=== PATIENT | male | born 1950 | race Caucasian/White ===

== ENCOUNTER 2022-12-21 12:20 | Outpatient (CLI) | payer MEDICARE, SELFPAY ==
--- NOTE | ~2022-12-21 | XR_ITS ---
XR abdomen/kub 1V 12/21/2022 12:43 Indication: Right kidney stone Procedure: KUB Comparison: No prior studies for comparison. Findings: There is a curvilinear calcification overlying the expected location the right renal hilum which may represent a renal stone or vascular calcification. There are pelvic phleboliths on the righ t. There is moderate osteoarthritis of the hips. Impression: 1: Curvilinear calcification overlying the right renal pelvis which may represent a renal stone or va scular calcification. Reviewed, dictated and finalized at location A. Impression: 1: Curvilinear calcification overlying the right renal pelvis which may represe nt a renal stone or vascular calcification.
== END 2022-12-21 12:21 | disposition home or self-care (01) ==
PROVIDERS: PCP Family Medicine; Visit Provider Urology
DX: N20.0 Calculus of kidney (principal)
CPT/HCPCS: 74018

== ENCOUNTER 2023-02-26 09:19 | Outpatient (CLI) | payer MEDICARE, SELFPAY ==
--- NOTE | 2023-02-26 09:46 | ECG_ITS ---
Measurements Intervals [place] Rate: 51 P: 43 MA: 230 QRS: -17 QRSD: 100 T: -3 QT: 426 QTc: 396 Interpretive Statements SINUS BRADYCARDIA WITH FIRST DEGREE AV BLOCK WITH OCCASIONAL VENTRICULAR PREMATURE COMPLEXES MODERATE VOLTAGE CRITERIA FOR LVH, CONSIDER NORMAL VARIANT [MEETS CRITERIA IN ONE OF: R(aVL), S(V1), R(V5), R(V5/V6)+S(V1)] POOR R-WAVE PROGRESSION ABNORMAL ECG NO PREVIOUS ECG AVAILABLE FOR COMPARISON Electronically Signed On 02-26-2023 13:37:46 CDT by Parker Montenegro M.D.
[2023-02-26 10:34] LABS: INR 0.8; Prothrombin Time 11.7 Seconds (11.1-14.7)
== END 2023-02-26 09:20 | disposition home or self-care (01) ==
LOC: ANHSURGERY 09:24
PROVIDERS: PCP Family Medicine; Visit Provider Urology
DX: Z01.818 Encounter for other preprocedural examination (principal); R94.31 Abnormal electrocardiogram [ECG] [EKG]; I44.0 Atrioventricular block, first degree; R00.1 Bradycardia, unspecified; R93.1 Abnormal findings on diagnostic imaging of heart and coronary circulation; N20.0 Calculus of kidney; I10 Essential (primary) hypertension
CPT/HCPCS: 36415; 85610; 85730; 87086; 93005

== ENCOUNTER 2023-03-02 00:24 | Day surgery (SDC) | payer MEDICARE, SELFPAY ==
[2023-02-16 11:53] VITALS: BMI 30.6
--- NOTE | 2023-02-16 12:04 | PC.NURSE ---
PRE-OP INSTRUCTIONS, PLEASE READ CAREFULLY Report to the Outpatient Waiting Room, entrance under the green pavilion located off [facility], at time _0600_ on date _03/02/23_. Planned Procedure Time: _0730_. Time changes happen often and if your time is changed the preop area will call you the afternoon before. - You and your visitor will be asked to self-screen and do not enter if you have any COVID symptoms. - A mask is optional within the hospital at this time. Patients may have clear liquids (water, carbonated beverages, clear teas, apple juice) until 3 hours prior to surgery (0430 AM) with a maximum of 20 ounces. - No food from midnight until time of surgery Take the following medications with a SIP of water the morning of surgery: _AMLODIPINE, NEBIVOLOL_ DO NOT STOP ANY OF YOUR OTHER PRESCRIPTION MEDICATIONS PRIOR TO SURGERY ?EXCEPT THE FOLLOWING Medications to discontinue - _IBUPROFEN & MULTIVITAMIN PER DR. AVELAR'S INSTRUCTIONS_ Please no make-up, nail bengali, hairspray, perfume, deodorant, or body powder the day of surgery. No jewelry (including any body piercings) or valuables the day of surgery, leave them at home. Please take a shower or bath the night before, or the morning of, surgery with an antibacterial soap. Wear comfortable, loose fitting clothing. - Jewelry must be removed prior to entering the operating room. Rings and piercings that are not removed may be cut off. - The hospital will not accept responsibility for valuables. - Please leave all valuables, including medications, at home the day of surgery. If you are going home after surgery, a licensed driver starting gate must drive you home. - NO public transportation without another adult if you receive anesthesia. - We recommend that an adult stay with you for 24 hours following discharge. - We also recommend that you do not drive, make important decision, drink alcoholic beverages, or take any drugs that were not prescribed by your health care provider for at least 24 hours after your discharge time. Follow any additional instructions given to you from your surgeon. If you or anyone in your household have experienced Covid symptoms in the past week, please notify your surgeon or the nurse liaison at the phone number below for possible testing. Telephone instructions given to _PATIENT_and asked if any additional questions and then verbalized understanding. Patient advised to call surgeon office or pre surgery nurse liaison [phone] if any additional questions.
--- NOTE | 2023-02-20 09:20 | P.HP_ITS ---
History of Present Illness History of Present Illness Consent: Risks, benefits, and alternatives have been discussed and questions answered. Patient agrees to proceed with procedure. Chief complaint: right renal stone, hematuria Narrative: Kendrick Hernandez Sr. is a 72 year old male Without prior known history of urolithiasis who recently underwent evaluation for hematuria. CT scan the abdomen and pelvis with contrast revealed a 5 mm right renal pelvic calculus w ithout other upper tract pathology. After discussion of options he has elected for a right ESWL. He is aware the risk including, but not limited to, adverse cardiopulmonary events, perinephric hematoma hematuria and need for additional procedures. We will also do cystoscopy at the time to complete evaluation for hematuria Review of Systems Cardiovascular: Cardiovascular: Denies chest pain, Denies lightheadedness, Denies palpitations and Denies dyspnea Respiratory: Respiratory: Denies dyspnea Gastrointestinal: Gastrointestinal: Denies diarrhea, Denies nausea and Denies vomiting Genitourinary: Genitourinary: Denies hematuria and Denies dysuria Endocrine: Endocrine: Denies palpitations PMFSH Social History Social History Smoking status: Never smoker Second hand tobacco smoke exposure: No Alcohol intake: never Substance use: never Living arrangements: with family Spiritual care concerns: No Meds Home Medications and Allergies Home Medications Medication Instructions Recorded Confirmed Type amlodipine 10 mg tablet 10 mg QAM 02/16/23 02/16/23 History cetirizine 10 mg tablet (Zyrtec) 10 mg PO HS 02/16/23 02/16/23 History ibuprofen 200 mg tablet 400 mg PO BID PRN Pain 02/16/23 02/16/23 History multivitamin 1 tablet PO DAILY 02/16/23 02/16/23 History nebivolol 5 mg tablet 5 mg QAM 02/16/23 02/16/23 History simvastatin 20 mg tablet 10 mg HS 02/16/23 02/16/23 History Allergies Allergy/AdvReac Type Severity Reaction Status Date / Time No Known Allergies Allergy Verified 02/16/23 11:48 Exam Const: General: no acute distress Resp: Effort & Inspection: normal respiratory effort GI: Inspection: non-distended GI Palp: No abdominal tenderness and No Guarding due to palpation present (GI) Auscultation: normal bowel sounds Assessment and Plan Assessment and plan (1) Right renal stone: Code(s): N20.0 - Calculus of kidney Status: Acute (2) Hematuria: Code(s): R31.9 - Hematuria, unspecified Status: Acute Assessment and Plan: * Right ESWL and flexible cystoscopy
[2023-03-02] VITALS (7 sets, daily range): BP systolic 133–180; BP diastolic 59–102; PULSE 47–70; RESP 12–19; TEMP 36.4–36.6; O2SAT 96–99
--- NOTE | ~2023-03-02 | XR_ITS ---
Supine and upright views of the abdomen Clinical history: Lithotripsy COMPARISON: 12/21/2022 Findings: Bowel gas pattern is nonspecific. No evidence for obstruction or free air. Stable small cur vilinear calcification overlying the region of the right renal pelvis. Stable calcified pelvic phlebo liths. Degenerative change of both hip joints noted. Impression: Stable small curvilinear calcification at the region of the right renal pelvis. Reviewed, dictated and finalized at location M. Impression: Stable small curvilinear calcification at the region of the right renal pelvis.
[2023-03-02] MEDS: LACTATED RINGERS 1,000 ML 30 ML IV CONT (06:30)
--- NOTE | 2023-03-02 06:34 | P.PNAN_ITS ---
Anes - Initial Pre Proc Eval Procedure: Operation Date: 03/02/23 07:30 Proposed Procedures p Right Extracorporeal Shock Wave Lithotripsy, - Davion Vallejo MD s Flexible Cystoscopy - Davion Vallejo MD Date/Time: 03/02/23 06:34 Surgeon: Davion Vallejo MD Pre Op Diagnosis: right renal stone, hematuria Patient Data Age: 72 Gender: M Height: 1.75 m Weight: 94.09 kg Allergies Allergy/AdvReac Type Severity Reaction Status Date / Time No Known Allergies Allergy Verified 02/16/23 11:48 Home Medications Medication Instructions Recorded Confirmed Type amlodipine 10 mg tablet 10 mg QAM 02/16/23 02/16/23 History cetirizine 10 mg tablet (Zyrtec) 10 mg PO HS 02/16/23 02/16/23 History ibuprofen 200 mg tablet 400 mg PO BID PRN Pain 02/16/23 02/16/23 History multivitamin 1 tablet PO DAILY 02/16/23 02/16/23 History nebivolol 5 mg tablet 5 mg QAM 02/16/23 02/16/23 History simvastatin 20 mg tablet 10 mg HS 02/16/23 02/16/23 History Patient hx anesthesia problems: none Family hx anesthesia problems: none Results Review: All pre-operative results and documents have been reviewed as part of the pre- operative evaluation. [facility] Past Medical History Medical History (Updated 03/02/23 @ 06:35 by Konstantin Yoder MD) HTN (hypertension) Hyperlipidemia Obesity Social History Social History Smoking status: Never smoker Second hand tobacco smoke exposure: No Alcohol intake: never Substance use: never Living arrangements: with family Spiritual care concerns: No Anes - Eval Final PreProcedure Day of Procedure 03/02/23 06:34 Patient weight: obese Heart: regular rate and rhythm Lungs: clear to auscultation Airway: Mallampati scale class II Neurological: alert and oriented Last oral intake: >/= 8 hours ASA classification: III Emergent: no Anesthetic plan: proceed Anesthesia type and monitoring: general LMA and standard monitoring Results Review: All pre-operative results and documents have been reviewed as part of the pre- operative evaluation. Informed Consent: The patient's anesthetic plan and its attendant risks and benefits were discussed with the patient/family/POA. Questions were solicited and answers provided to the satisfaction of the patient/family/POA.
--- NOTE | 2023-03-02 07:18 | WPDHPUPDATE1 ---
History and Physical Update Update Date/Time: 03/02/23 07:18 History and Physical has been reviewed, including an updated exam of the patient. There are NO changes in the patient's condition. Risks, benefits, and alternatives have been discussed and questions answered. Patient agrees to proceed with procedure.
[2023-03-02] MEDS: ceFAZolin 2 GM/D5W 50 ML 2 GM/50 ML BAG IVPB (07:21)
--- NOTE | 2023-03-02 08:09 | W.PM.PROC2 ---
Procedure Note - Detailed Date of Procedure 03/02/23 Pre-op Diagnosis Right renal stone, hematuria Post-op Diagnosis Same Procedure Performed 1. Flexible cystoscopy 2. Right ESWL Surgeon Davion Vallejo MD Anesthesia General Findings 1. Normal cystoscopy 2. 5-6mm right renal calculus Description of Procedure The patient was brought to the operative suite where he was placed in the supine position on the Dornier lithotripter table. Flexible cystoscopy was undertaken with a 16F flexible cystoscopy. There were no urethral strictures. The prostatic urethra estimated length was 1.5cm. There was mild obstruction of the prostatic urethra with no median lobe enlargement. The bladder mucosa was normal and there was a single, orthotopic ureteral orifice bilaterally. The patient was then repositioned in the supine position with the focal point of the lithotriptor on a 5-6mm right renal calculus. A total of 2500 shocks were delivered at a power setting of 4. There appeared to be good fragmentation of the stone. The patient tolerated the procedure well and was taken to the recovery room in good condition. Drains No Packing No Pathology None sent Complications No immediate complications Condition Stable
== END 2023-03-02 09:44 | disposition home or self-care (01) ==
PROVIDERS: PCP Family Medicine; Visit Provider Urology
PROC: (CPT 50590; principal; 2023-03-02 07:30)
PROC: 0TJB8ZZ Inspection of Bladder, Via Natural or Artificial Opening Endoscopic (ICD-10-PCS; CPT 52000; 2023-03-02 07:30)
DX: N20.0 Calculus of kidney (principal); R31.9 Hematuria, unspecified; I10 Essential (primary) hypertension; E78.5 Hyperlipidemia, unspecified; E66.9 Obesity, unspecified; Z68.30 Body mass index [BMI] 30.0-30.9, adult
CPT/HCPCS: 50590; 52000; 36415; 74018; 85610; 85730; 87086; 93005; J0690; J1100; J2405; J2704; J7120

== ENCOUNTER 2023-03-07 09:20 | Outpatient (CLI) | payer MEDICARE, SELFPAY ==
--- NOTE | ~2023-03-07 | XR_ITS ---
XR abdomen/kub 1V 03/07/2023 09:40 INDICATION: Renal stone TECHNIQUE: KUB COMPARISON: 03/02/2023 12/21/2022 FINDINGS: Bowel gas pattern is normal. Stable curvilinear calcification overlying the expected locati on of the renal pelvis, suspicious for vascular calcification There is no evidence of free air, mass, organomegaly, ascites or obstruction. No abnormal calculi are seen. The bones appear intact. IMPRESSION: 1: Stable curvilinear calcification at the right renal pelvis, possibly vascular. Consider correlatio n with CT to exclude renal artery aneurysm versus renal stone. Reviewed, dictated and finalized at location B. IMPRESSION: 1: Stable curvilinear calcification at the right renal pelvis, possibly vascula r. Consider correlation with CT to exclude renal artery aneurysm versus renal s tone.
== END 2023-03-07 09:21 | disposition home or self-care (01) ==
PROVIDERS: PCP Family Medicine; Visit Provider Urology
DX: N20.0 Calculus of kidney (principal)
CPT/HCPCS: 74018

== ENCOUNTER 2025-01-19 09:58 | Outpatient (CLI) | payer MEDICARE, SELFPAY ==
--- OUTSIDE RECORDS SUMMARY | 2018-02-28 04:50 | XMS_ITS | Continuity of Care Document ---
Author Organization [facility] Address [address] [place] [address] Phone Care Team Providers Care Process Cheese Cooker Name Role Phone Manny Rojas MD Unavailable Unavailable Allergies, Adverse Reactions, Alerts Substance Reaction Status Criticality No Known Allergies Active No Inform ation Medications Medication Instructions Dosage Effective Dates (start - stop) Status Comments Bystolic 5 mg tablet take 1 tablet by or al route every day 5 MG - Active amlodipine 5 mg tablet take 2 tablet by oral route every day 10 MG - Active simvastatin 10 mg tablet take 1 tablet by oral route every day in the evening 10 MG - Active Wal-Mucil Fiber 0.52 gram capsule - Active Oxford 3-6-9 Complex 400 mg-400 mg-400 mg capsule - Active Advance Directives Directive Yes / No Effective Date File Name No Information Encounters Encounter Description Practice Location Reason(s) For Visit Diagnoses Date Provider Providers [facility], [address], [place], [place], [id number], tel:[phone] [place] [facility] Non-allergi c rhinitis Bob Bryant. [address], [id number], [place]. tel:[phone] Referring Provider: Konstantin Ferro, [address] [place], [address]. tel:[phone] Family History Family Member Type Diagnosis Age At Onset Son Problem (finding) Allergies Payers Payer name Insurance type Covered libertarian ID Authoriza tion(s) [facility] [facility] 16 [id number] Social History Type Description Quantity Date Captured Comments Alcohol Use Details Unknown Caffeine Use Details Unknown Tobacco Use Status No Information Smoking Status Never smoker Sex Male Vital Signs Date / Time: Height Weight BMI Pulse Rate Blood Pressure Temperature Respiratory Rate Body Surface Area Head Circumference Head Circ. Percentile Wt./Brandon. Percentile BMI percentile Pulse Ox Inhaled Ox 9:21 AM 67.00 in 93.440 kg (206.00 lbs) 32.2 6 kg/m eter (2) 57 /min 139/79 mm[Hg] Chief Complaint And Reason For Visit No Information Reason For Referral Reason For Referral No Information History Of Present Illness Encounter Date Complaint History Of Prese nt Illness No Information Functional Status Date Functional Assessmen t No Information Instructions Date Instruction Additional Infor mation No Information Assessments Type Assessment Date No Information Patient Care Teams Name Effective Dates (start - stop) Status Members No Information
--- NOTE | ~2025-01-19 | XR_ITS ---
XR abdomen/kub 1V 01/19/2025 10:21 Indication: Right renal stone Procedure: KUB Comparison: Comparison to multiple prior studies sequentially, with oldest reviewed study dated 12/21/2022. Findings: Stable curvilinear calcification near the expected location the right renal hilum, most likely vascular. 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 Recommend correlation with CTA abdomen for further assessment. There are pelvic phleboliths. Moderate lumbar spondylosis. Lung bases unremarkable. Moderate osteoarthritis of the hips. Impression: 1: Stable curvilinear calcification right mid abdomen, likely vascular. 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 Recommend correlation with CTA abdomen. Reviewed, dictated and finalized at location O. Impression: 1: Stable curvilinear calcification right mid abdomen, likely vascular. Conside r renal artery aneurysm. Recommend correlation with CTA abdomen.
--- OUTSIDE RECORDS SUMMARY | 2025-01-19 10:47 | XMS_ITS | Encounter Summary ---
Author Organization [facility] Address 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
--- OUTSIDE RECORDS SUMMARY | 2025-01-19 10:47 | XMS_ITS | Encounter Summary ---
Author Organization [facility] Address [address] [place] [address] Care Team Providers Care Textiles Printer Name Role Phone Lokesh Mcdowell MD Primary Care Provider Unavailab le Encounter Details Date Type Department Care Team (Late st Contact Info) Description 05/30/2007 Outpatient Historical [facility] Internal [facility] [place] [facility] [address] [id number] Lokesh River MD [address] [place] [address] [place] [address] Social History Tobacco Use Types Packs/Day Years Used Date Smoking Tobacco: Never Assessed Sex and Gender Information Value Date Recorded Sex Assigned at Not on file 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
--- OUTSIDE RECORDS SUMMARY | 2025-01-19 10:47 | XMS_ITS | Encounter Summary ---
Author Organization [facility] Address [address] [place] [address] Care Team Providers Care Instrument Checker Name Role Phone Lokesh Mcdowell MD Primary Care Provider Unavailab le Encounter Details Date Type Department Care Team (Latest Contact Info) Description 12/13/[address] [facility] Internal Medicine Medical [place] [facility] [address] [facility] [facility] 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 TRANSPORTER Gender Identity Not on file Sexual Orientation Not on file documented as of this encounter Plan of Treatment Not on file documented as of this encounter Procedures Procedure Name Priority Date/Time Associated Diagnosis Comments COMPREHENSIVE METABOLIC PANEL Routine 12/13/2006 11:56 AM CDT documented in this encounter Results * COMPREHENSIVE METABOLIC PANEL (12/13/2006 11:56 AM CDT) GLUCOSE 98 65 - 99 mg/dL INTERFACE SYSTEM CREATININE 1.01 0.67 - 1.17 mg/dL INTERFACE SYSTEM CALCIUM 9.4 8.4 - 10.2 mg/dL INTERFACE SYSTEM ALKALINE PHOSPHATASE 87 40 - 129 U/L INTERFACE SYSTEM AST 20 12 - 38 U/L INTERFACE SYSTEM ALT 30 0 - 41 U/L INTERFACE SYSTEM TOTAL PROTEIN 7.2 6.3 - 8.6 g/dL INTERFACE SYSTEM ALBUMIN 4.4 3.4 - 4.8 g/dL INTERFACE SYSTEM BILIRUBIN TOTAL 0.6 0.2 - 1.0 mg/dL INTERFACE SYSTEM BUN 13 6 - 20 mg/dL INTERFACE SYSTEM SODIUM 140 135 - 145 mmol/L INTERFACE SYSTEM POTASSIUM 4.1 3.5 - 4.9 mmol/L INTERFACE SYSTEM CHLORIDE 103 96 - 108 mmol/L INTERFACE SYSTEM CO2 30 22 - 30 mmol/L INTERFACE SYSTEM GFR, >60 >=60 mL/min/1.7 sq meter INTERFACE SYSTEM GFR >60 >=60 mL/min/1.7 sq meter INTERFACE SYSTEM Comment: Estimated GFR rate interpretative information for both Americans and non- Americans is available on the [facility] CardioVIPet at: [email or web address] Select: Lab Policies and Procedures Select: Reference Ranges - GFR 12/13/2006 11:5 6 AM CDT Lokesh River MD CHEMISTRY ORDERABLES Edited INTERFACE SYSTEM Refer to clinic/hospital department documented in this encounter Visit Diagnoses Diagnosis Other and unspecified hyperlipidemia- Primary documented in this encounter Care Teams Instrument Checker Relationship Specialty Start Date End Date Lokesh Mcdowell MD PCP - General 06/17/09 06/19/12 documented as of this encounter
--- OUTSIDE RECORDS SUMMARY | 2025-01-19 10:47 | XMS_ITS | Encounter Summary ---
Author Organization [facility] Address 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
--- OUTSIDE RECORDS SUMMARY | 2025-01-19 10:47 | XMS_ITS | Encounter Summary ---
Author Organization [facility] Address 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
--- OUTSIDE RECORDS SUMMARY | 2025-01-19 10:47 | XMS_ITS | Encounter Summary ---
Author Organization [employer] Address 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 Gender Identity Not on file Sexual Orientation Not on file documented as of this encounter Plan of Treatment Not on file documented as of this encounter Procedures Procedure Name Priority Date/Time Associated Diagnosis Comments LIPID PANEL Routine 11/09/2004 12:10 PM CDT COMPREHENSIVE METABOLIC PANEL Routine 11/09/2004 12:10 PM CDT documented in this encounter Results * (ABNORMAL) LIPID PANEL (11/09/2004 12:10 PM CDT) CHOLESTEROL 193 100 - 199 mg/dL INTERFACE SYSTEM TRIGLYCERIDE 98 10 - 149 mg/dL INTERFACE SYSTEM HDL 59 40 - 59 mg/dL INTERFACE SYSTEM LDL CALCULATED 114(H) <=99 mg/dL INTERFACE SYSTEM CHOL/HDL RATIO 3.3 2.0 - 5.0 INTER FACE SYSTEM Comment:See interpretive chapo a section for risk classifications. LIPID PANEL COMMENT See below INTERFACE SYSTEM Comment: Adult ATP III Classifications: Cholesterol (mg/dL) Triglyceride (mg/dL) Desirable <200 Normal <150 Borderline 200 - 239 Borderline High 150 - 199 High >=240 High 200 - 499 Very High >=500 HDL Cholesterol (mg/dL) LDL (mg/dL) Low (increased risk) <40 Optimal <100 High (reduced risk) >=60 Near or above optimal 100 - 129 Borderline 130 - 159 High 160 - 189 Very High >=190 LDL calculation is not accurate if Triglycerides are greater than 400 mg /dL Pediatric NCEP Classifications: Cholesterol(<20 years),(mg/dL) Triglyceride Desirable <170 Pediatric classification Borderline 170 - 199 not defined. High >=200 HDL (<5 years) LDL (mg/dL) No Reference Range Established Desirable <110 Borderline 110 - 129 High >=130 11/09/2004 12:1 0 PM CDT us Adam Kimble MD CHEMISTRY ORDERABLES Final Resul t INTERFACE SYSTEM Refer to clinic/hospital department * COMPREHENSIVE METABOLIC PANEL (11/09/2004 12:10 PM CDT) GLUCOSE 97 65 - 109 mg/dL INTERFACE SYSTEM CREATININE 0.9 0.5 - 1.3 mg/dL INTERFACE SYSTEM CALCIUM 9.6 8.6 - 10.2 mg/dL INTERFACE SYSTEM AST 24 12 - 38 U/L INTERFACE SYSTEM ALKALINE PHOSPHATASE 89 40 - 129 U/L INTERFACE SYSTEM BUN 18 6 - 20 mg/dL INTERFACE SYSTEM BILIRUBIN TOTAL 0.4 0.2 - 1.0 mg/dL INTERFACE SYSTEM ALBUMIN 4.5 3.4 - 4.8 g/dL INTERFACE SYSTEM TOTAL PROTEIN 7.5 6.3 - 8.6 g/dL INTERFACE SYSTEM ALT 41 0 - 41 U/L INTERFACE SYSTEM SODIUM 139 135 - 145 mmol/L INTERFACE SYSTEM POTASSIUM 4.2 3.5 - 4.9 mmol/L INTERFACE SYSTEM CHLORIDE 102 96 - 108 mmol/L INTERFACE SYSTEM CO2 27 22 - 30 mmol/L INTERFACE SYSTEM 11/09/2004 12:1 0 PM CDT us Adam Kimble MD CHEMISTRY ORDERABLES Final Resul t INTERFACE SYSTEM Refer to clinic/hospital department documented in this encounter Visit Diagnoses Not on filedocumented in this encounter Care Teams State Federal Relations Deputy Director Relationship Specialty Start Date End Date Lokesh Mcdowell MD PCP - General 06/17/09 06/19/12 documented as of this encounter
--- OUTSIDE RECORDS SUMMARY | 2025-01-19 10:47 | XMS_ITS | Encounter Summary ---
Author Organization [employer] Address 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
--- OUTSIDE RECORDS SUMMARY | 2025-01-19 10:47 | XMS_ITS | Encounter Summary ---
Author Organization [facility] Address [address] [place] [address] Care Team Providers Care Wire Frame Maker Name Role Phone Lokesh Mcdowell MD Primary Care Provider Unavailab le Encounter Details Date Type Department Care Team (Late st Contact Info) Description 12/13/2006 Orders Only [facility] Internal Medicine Medical [facility] [address] [place] [address] Carlos Randall MD [address] 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
--- OUTSIDE RECORDS SUMMARY | 2025-01-19 10:47 | XMS_ITS | Encounter Summary ---
Author Organization [employer] Address [address] [place] [address] Care Team Providers Care Health Sciences Manager Name Role Phone Lokesh Mcdowell MD Primary Care Provider Unavailab le Encounter Details Date Type Department Care Team (Late st Contact Info) Description 11/06/2002 Outpatient Historical 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
--- OUTSIDE RECORDS SUMMARY | 2025-01-19 10:47 | XMS_ITS | Encounter Summary ---
Author Organization [employer] Address [address] [place] [address] Care Team Providers Care Desulfurizer Operator Name Role Phone Lokesh Mcdowell MD Primary Care Provider Unavailab le Encounter Details Date Type Department Care Team (Late st Contact Info) Description 12/02/2003 Outpatient Historical [facility] Adam Kimble MD [address] [place] [address] Social History Tobacco Use Types Packs/Day Years Used Date Smoking Tobacco: Never Assessed Sex and Gender Information Value Date Recorded Sex Assigned at Not on file Legal Sex Male 3:35 AM ON CALL Gender Identity Not on file Sexual Orientation Not on file documented as of this encounter Plan of Treatment Not on file documented as of this encounter Visit Diagnoses Not on filedocumented in this encounter Care Teams Desulfurizer Operator Relationship Specialty Start Date End Date Lokesh Mcdowell MD PCP - General 06/17/09 06/19/12 documented as of this encounter
--- OUTSIDE RECORDS SUMMARY | 2025-01-19 10:47 | XMS_ITS | Encounter Summary ---
Author Organization [facility] Address [address] [place] [address] Care Team Providers Care Weekend Anchor Name Role Phone Lokesh Mcdowell MD Primary Care Provider Unavailab le Encounter Details Date Type Department Care Team (Late st Contact Info) Description 05/30/2007 Outpatient Historical [facility] Internal Medicine Medical [place] [facility] [address] [facility] [address] [address] Lokesh River MD [address] [place] [address] [place] [address] Social History Tobacco Use Types Packs/Day Years Used Date Smoking Tobacco: Never Assessed Sex and Gender Information Value Date Recorded Sex Assigned at Not on file 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
--- OUTSIDE RECORDS SUMMARY | 2025-01-19 10:47 | XMS_ITS | Encounter Summary ---
Author Organization [facility] Care Team Providers Care Medical Staff Coordinator Name Role Phone Konstantin Ferro MD Primary Care Provider [phone] Konstantin Ferro MD Primary Care Provider [phone] Encounter Details Date Type Department Care Team (Latest Contact Info) Description 04/10/2017 Orders Only [facility] ProviderZoie MD [address] [place] [address] Social History Tobacco Use Types Packs/Day Years Used Date Smoking Tobacco: Never Assessed Sex and Gender Information Value Date Recorded Sex Assigned at Not on file Legal 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 Historical Provider [facility] RICHARD STINSON Final Result documented in this encounter Visit Diagnoses Not on filedocumented in this encounter Care Teams Medical Staff Coordinator Relationship Specialty Start Date End Date Konstantin Ferro MD PCP - General Family Medicine 10/09/18 11/21/22 Konstantin Ferro MD PCP - General Family Medicine 12/18/23 documented as of this encounter
--- OUTSIDE RECORDS SUMMARY | 2025-01-19 10:47 | XMS_ITS | Encounter Summary ---
Author Organization [employer] Address 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
--- OUTSIDE RECORDS SUMMARY | 2025-01-19 10:47 | XMS_ITS | Encounter Summary ---
Author Organization [facility] Address [address] [place] [address] Care Team Providers Care Java User Interface Developer Name Role Phone Unavailable Primary Care Provider Unavailabl e Encounter Details Date Type Department Care Team (Late st Contact Info) Description 07/01/2021 Lab Requisition [facility] DermPath Lab [address] [facility] [place] [id number] Shashank Kendall MD [address] [place] [address] Social History Tobacco Use Types Packs/Day Years Used Date Smoking Tobacco: Never Assessed Sex and Gender Information Value Date Recorded Sex Assigned at Not on file Legal Sex Male 2:09 PM ELECTRICAL MACHINE BUILDER Gender Identity Not on file Sexual Orientation Not on file documented as of this encounter Plan of Treatment Not on file documented as of this encounter Procedures Procedure Name Priority Date/Time Associated Diagnosis Comments DERMATOPATHOLOGY Routine 07/01/2021 12:0 0 AM ELECTRICAL MACHINE BUILDER documented in this encounter Results * DERMATOPATHOLOGY (07/01/2021 12:00 AM ELECTRICAL MACHINE BUILDER) Case Report Dermatopathology Report Case: [id number] Authorizing Provider: Shashank Kendall MD Collected: 07/01/2021 12:00 AM Ordering Location: [facility] DermPath Lab Received: 07/01/2021 02:19 PM Pathologist: Nan Sales MD Specimen: Skin, right arm 2:29 PM ELECTRICAL MACHINE BUILDER DERMATOPATHOLOGY LABORATORY Final Diagnosis Specimen A. 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 Path # [id number]. 2 2:29 PM [facility] D[facility]ORY Gross Description Specimen A: Received is one formalin filled container labeled with the patient's name and designated right arm. The specimen consists of a shave biopsy measuring [id number]. Jar 0. 2 2:29 PM [facility] D[facility]ORY Microscopic Description Specimen A. SKIN, right arm: Sections show a proliferation of spindled and S-shaped cells within the dermis. The stromal collagen is delicate and pale. 2 2:29 PM [facility] DER[facility]ORY Disclaimer An external and internal positive and negative controls are appropriate for the histochemical, immunohistochemical and immunofluorescence stain(s) in this case (if any), except where stated explicitly. The performance characteristics of the stain(s) cited in this report were developed and its performance characteristic determined by the Dermatopathology Laboratory at [facility], directed by Dr. Tanisha Sales. These tests need not be, and therefore are not, approved by the [place] Food and Drug Administration. The tests are used for clinical purposes. Billing Codes Specimen Charges Stain Charges 43404 1 2 2:29 PM [facility] DER[facility] LABORATORY Embedded Images 2 2:29 PM [facility] D[facility]ORY Pathology/Cytolog y TISSUE SPECIMEN FROM SKIN / Unknown 07/01/2021 07/01/2021 2:19 PM ELECTRICAL MACHINE BUILDER us Shashank Kendall MD LAB - PATHOLOGY/CYTOLOGY ORDER RONNIE Final Result DERMATOPATHOLOGY LABORATORY [facility] - Department of Dermatology [address] [place] [address], [facility] [phone] documented in this encounter Visit Diagnoses Not on filedocumented in this encounter
--- OUTSIDE RECORDS SUMMARY | 2025-01-19 10:47 | XMS_ITS | Encounter Summary ---
Author Organization [employer] Address 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 Gender Identity Not on file Sexual Orientation Not on file documented as of this encounter Plan of Treatment Not on file documented as of this encounter Procedures Procedure Name Priority Date/Time Associated Diagnosis Comments CBC WITH DIFFERENTIAL Routine 10/25/2005 10:40 AM CDT CBC WITH DIFFERENTIAL Routine 10/25/2005 10:40 AM CDT URINALYSIS W/REFLEX MICROSCOPIC Routine 10/25/2005 10:40 AM CDT TSH Routine 10/25/2005 10:40 AM CDT PSA Routine 10/25/2005 10:40 AM CDT LIPID PANEL Routine 10/25/2005 10:40 AM CDT COMPREHENSIVE METABOLIC PANEL Routine 10/25/2005 10:40 AM CDT documented in this encounter Results * URINALYSIS (10/25/2005 10:40 AM CDT) COLOR UA Yellow INTERFACE SYSTEM CLARITY UA Clear Clear INTERFACE SYSTEM SPECIFIC GRAVITY UA 1.020 1.001 - 1.035 INTERFACE SYSTEM PH UA 6.5 5.0 - 8.0 INTERFACE SYSTEM LEUKOCYTE ESTERASE UA Negative Negative INTERFACE SYSTEM NITRITE UA Negative Negative INTERFACE SYSTEM PROTEIN UA Negative Negative INTERFACE SYSTEM GLUCOSE UA Negative Negative INTERFACE SYSTEM KETONES UA Negative Negative INTERFACE SYSTEM UROBILINOGEN UA <1 <=1 mg/dL INTE RFACE SYSTEM BILIRUBIN UA Negative Negative INTERFA CE SYSTEM BLOOD UA Negative Negative INTERFACE SYSTEM 10/25/2005 10:4 0 AM CDT us Adam Kimble MD URINE ORDERABLES Final Result Performing Organization Address City/[facility]/ZIP Co de Phone Number INTERFACE SYSTEM Refer to clinic/hospital department * PSA (10/25/2005 10:40 AM CDT) PSA 1.3 0.0 - 4.0 ng/mL INTERFACE SYSTEM Comment:Performed on [employer] E170 System 10/25/2005 10:4 0 AM CDT us Adam Kimble MD CHEMISTRY ORDERABLES Final Resul t Performing Organization Address City/[facility]/ZIP Co de Phone Number INTERFACE SYSTEM Refer to clinic/hospital department * LIPID PANEL (10/25/2005 10:40 AM CDT) CHOLESTEROL 149 100 - 199 mg/dL INTERFACE SYSTEM TRIGLYCERIDE 73 10 - 149 mg/dL INTERFACE SYSTEM HDL 57 40 - 59 mg/dL INTERFACE SYSTEM CHOL/HDL RATIO 2.6 2.0 - 5.0 INTER FACE SYSTEM LDL CALCULATED 77 <=99 mg/dL INTERFACE SYSTEM LIPID PANEL COMMENT See Below INTERFACE SYSTEM Comment: The adult ATP and pediatric NCEP classifications for lipids are available on the [facility] Intranet at: [email or web address] Select: Lab Policies and Procedures Select: Reference Ranges - Lipids 10/25/2005 10:4 0 AM CDT us Adam Kimble MD CHEMISTRY ORDERABLES Final Resul t Performing Organization Address [facility] Phone Number INTERFACE SYSTEM Refer to clinic/hospital department * COMPREHENSIVE METABOLIC PANEL (10/25/2005 10:40 AM CDT) GLUCOSE 98 65 - 99 mg/dL INTERFACE SYSTEM Comment:Note: Effective October 10, 2005, reference range now reflects a fasting st ate. CREATININE 1.0 0.5 - 1.3 mg/dL INTERFACE SYSTEM CALCIUM 9.2 8.6 - 10.2 mg/dL INTERFACE SYSTEM ALKALINE PHOSPHATASE 92 40 - 129 U/L INTERFACE SYSTEM AST 22 12 - 38 U/L INTERFACE SYSTEM ALT 31 0 - 41 U/L INTERFACE SYSTEM TOTAL PROTEIN 7.2 6.3 - 8.6 g/dL INTERFACE SYSTEM ALBUMIN 4.2 3.4 - 4.8 g/dL INTERFACE SYSTEM BILIRUBIN TOTAL 0.5 0.2 - 1.0 mg/dL INTERFACE SYSTEM BUN 20 6 - 20 mg/dL INTERFACE SYSTEM SODIUM 139 135 - 145 mmol/L INTERFACE SYSTEM POTASSIUM 4.3 3.5 - 4.9 mmol/L INTERFACE SYSTEM CHLORIDE 102 96 - 108 mmol/L INTERFACE SYSTEM CO2 29 22 - 30 mmol/L INTERFACE SYSTEM 10/25/2005 10:4 0 AM CDT us Adam Kimble MD CHEMISTRY ORDERABLES Final Resul t Performing Organization Address [facility] Phone Number INTERFACE SYSTEM Refer to clinic/hospital department * CBC WITH DIFFERENTIAL (10/25/2005 10:40 AM CDT) NEUTROPHILS 62 45 - 70 % INTERFAC E SYSTEM LYMPHOCYTES 26 16 - 45 % INTERFAC E SYSTEM MONOCYTES 9 3 - 13 % INTERFACE SYSTEM EOSINOPHILS 3 0 - 7 % INTERFAC E SYSTEM BASOPHILS 0 0 - 2 % INTERFACE SYSTEM NEUTROPHIL ABSOLUTE 4.20 1.90 - 7.00 K/uL INTERFACE SYSTEM LYMPHOCYTE ABSOLUTE 1.76 0.70 - 4.50 K/uL INTERFACE SYSTEM MONOCYTE ABSOLUTE 0.57 0.10 - 1.30 K/uL INTERFACE SYSTEM EOSINOPHIL ABSOLUTE 0.18 0.00 - 0.70 K/uL INTERFACE SYSTEM BASOPHILS ABSOLUTE 0.03 0.00 - 0.20 K/uL INTERFACE SYSTEM 10/25/2005 10:4 0 AM CDT us Adam Kimble MD HEMATOLOGY ORDERABLES Final Resu lt Performing Organization Address [facility] Phone Number INTERFACE SYSTEM Refer to clinic/hospital department * CBC WITH DIFFERENTIAL (10/25/2005 10:40 AM CDT) WBC 6.7 4.0 - 9.8 K/uL INTERFACE SYSTEM RBC 5.06 4.50 - 5.40 M/uL INTERFACE SYSTEM HEMOGLOBIN 15.0 13.6 - 16.5 g/dL INTERFACE SYSTEM HEMATOCRIT 44.0 40.0 - 48.0 % INTERFACE SYSTEM MCV 87.0 82.0 - 99.0 fL INTERFACE SYSTEM MCH 29.6 27.2 - 32.6 pg INTERFACE SYSTEM MCHC 34.1 31.5 - 35.5 % INTERFACE SYSTEM RDW 12.9 11.5 - 14.5 % INTERFACE SYSTEM RDW-STDEV 41.0 37.1 - 48.7 fL INTERFACE SYSTEM PLATELETS 236 140 - 350 K/uL INTERFACE SYSTEM MPV 10.8 9.3 - 12.4 fL INTERFACE SYSTEM 10/25/2005 10:4 0 AM CDT us Adam Kimble MD HEMATOLOGY ORDERABLES Final Resu lt Performing Organization Address [facility] Phone Number INTERFACE SYSTEM Refer to clinic/hospital department * TSH (10/25/2005 10:40 AM CDT) TSH 1.06 0.27 - 4.20 uU/mL INTERFACE SYSTEM 10/25/2005 10:4 0 AM CDT us Adam Kimble MD CHEMISTRY ORDERABLES Final Resul t Performing Organization Address City/[facility] Phone Number INTERFACE SYSTEM Refer to clinic/hospital department documented in this encounter Visit Diagnoses Not on filedocumented in this encounter Care Teams Customer Experience Strategist Relationship Specialty Start Date End Date Lokesh Mcdowell MD PCP - General 1/21/10 1/23/13 documented as of this encounter
--- OUTSIDE RECORDS SUMMARY | 2025-01-19 10:47 | XMS_ITS | Encounter Summary ---
Author Organization [employer] Address 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
--- OUTSIDE RECORDS SUMMARY | 2025-01-19 10:47 | XMS_ITS | Encounter Summary ---
Author Organization [facility] Address [address] [place] [address] Care Team Providers Care Hand Cementer Name Role Phone Lokesh Mcdowell MD Primary Care Provider Unavailab le Encounter Details Date Type Department Care Team (Latest Contact Info) Description 05/30/2007 Outpatient Historical [facility] Internal Medicine Medical [place] [facility] [address] [facility] [address] [phone] Lokesh River MD [address] [place] [address] [place] [address] Other and Unspecified Hyperlipidemia Social History Tobacco Use Types Packs/Day Years Used Date Smoking Tobacco: Never Assessed Sex and Gender Information Value Date Recorded Sex Assigned at Not on file Legal Sex Male 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 Gender Identity Not on file Sexual Orientation Not on file documented as of this encounter Plan of Treatment Not on file documented as of this encounter Procedures Procedure Name Priority Date/Time Associated Diagnosis Comments PSA Routine 05/30/2007 9:51 AM AUTOMOTIVE PAINTER HELPER LIPID PANEL Routine 05/30/2007 9:51 AM AUTOMOTIVE PAINTER HELPER COMPREHENSIVE METABOLIC PANEL Routine 05/30/2007 9:51 AM AUTOMOTIVE PAINTER HELPER documented in this encounter Results * PSA (05/30/2007 9:51 AM AUTOMOTIVE PAINTER HELPER) PSA 1.2 0.0 - 4.0 ng/mL INTERFACE SYSTEM Comment:Performed on [employer] odular E170 System 05/30/2007 9:51 AM AUTOMOTIVE PAINTER HELPER Lokesh River MD CHEMISTRY ORDERABLES Edited INTERFACE SYSTEM Refer to clinic/hospital department * (ABNORMAL) COMPREHENSIVE METABOLIC PANEL (05/30/2007 9:51 AM AUTOMOTIVE PAINTER HELPER) GLUCOSE 102(H) 65 - 99 mg/dL INTERFACE SYSTEM CREATININE 1.02 0.67 - 1.17 mg/dL INTERFACE SYSTEM CALCIUM 9.2 8.4 - 10.2 mg/dL INTERFACE SYSTEM ALKALINE PHOSPHATASE 95 40 - 129 U/L INTERFACE SYSTEM AST 36 12 - 38 U/L INTERFACE SYSTEM ALT 59(H) 0 - 41 U/L INTERFACE SYSTEM TOTAL PROTEIN 7.4 6.3 - 8.6 g/dL INTERFACE SYSTEM ALBUMIN 4.6 3.4 - 4.8 g/dL INTERFACE SYSTEM BILIRUBIN TOTAL 0.4 0.2 - 1.0 mg/dL INTERFACE SYSTEM BUN 15 6 - 20 mg/dL INTERFACE SYSTEM SODIUM 139 135 - 145 mmol/L INTERFACE SYSTEM POTASSIUM 4.1 3.5 - 4.9 mmol/L INTERFACE SYSTEM CHLORIDE 100 96 - 108 mmol/L INTERFACE SYSTEM CO2 31(H) 22 - 30 mmol/L INTERFACE SYSTEM GFR, >60 >=60 mL/min/1. 7 sq meter INTERFACE SYSTEM GFR >60 >=60 mL/min/1. 7 sq meter INTERFACE SYSTEM Comment: Estimated GFR rate interpretative information for both Americans and non- Americans is available on the [facility] Intranet at: [email or web address] Select: Lab Policies and Procedures Select: Reference Ranges - GFR 05/30/2007 9:51 AM AUTOMOTIVE PAINTER HELPER Lokesh River MD CHEMISTRY ORDERABLES Edited INTERFACE SYSTEM Refer to clinic/hospital department * (ABNORMAL) LIPID PANEL (05/30/2007 9:51 AM AUTOMOTIVE PAINTER HELPER) CHOLESTEROL 176 100 - 199 mg/dL INTERFACE SYSTEM TRIGLYCERIDE 103 10 - 149 mg/dL INTERFACE SYSTEM HDL 51 40 - 59 mg/dL INTERFACE SYSTEM CHOL/HDL RATIO 3.5 2.0 - 5.0 INTER FACE SYSTEM LDL CALCULATED 104(H) <=99 mg/dL INTERFACE SYSTEM LIPID PANEL COMMENT See Below INTERFACE SYSTEM Comment: The adult ATP and pediatric NCEP classifications for lipids are available on the [facility] Intranet at: [email or web address] the [email or web address] Select: Lab Policies and Procedures,Current Select: Lipid Panel Interpretation 05/30/2007 9:51 AM AUTOMOTIVE PAINTER HELPER Lokesh River MD CHEMISTRY ORDERABLES Edited INTERFACE SYSTEM Refer to clinic/hospital department documented in this encounter Visit Diagnoses Diagnosis Other and unspecified hyperlipidemia documented in this encounter Care Teams Hand Cementer Relationship Specialty Start Date End Date Lokesh Mcdowell MD PCP - General 06/17/09 06/19/12 documented as of this encounter
--- OUTSIDE RECORDS SUMMARY | 2025-01-19 10:47 | XMS_ITS | Encounter Summary ---
Author Organization [employer] Address 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
--- OUTSIDE RECORDS SUMMARY | 2025-01-19 10:47 | XMS_ITS | Encounter Summary ---
Author Organization [facility] Address [address] [place] [address] Care Team Providers Care Brush Finisher Name Role Phone Lokesh Mcdowell MD Primary Care Provider Unavailab le Encounter Details Date Type Department Care Team (Late st Contact Info) Description 05/30/2007 Orders Only [facility] Internal Medicine Medical [facility] [address] [place] [address] Carlos Randall MD [address] 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
--- OUTSIDE RECORDS SUMMARY | 2025-01-19 10:47 | XMS_ITS | Encounter Summary ---
Author Organization Address [address] [place] [address] Care Team Providers Care Glove Printer Name Role Phone Lokesh Mcdowell MD Primary Care Provider Unavailab le Encounter Details Date Type Department Care Team (Late st Contact Info) Description 02/11/2007 Orders Only [facility] Internal Medicine Medical [place] [facility] [address] [facility] [address] [address] Lokesh River MD [address] [place] [address] [place] [address] Social History Tobacco Use Types Packs/Day Years Used Date Smoking Tobacco: Never Assessed Sex and Gender Information Value Date Recorded Sex Assigned at Not on file 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 Sergio REINA PHONE NUMBER: [phone] PHARMACY NUMBER: [facility] ..mail to pt SECTION 1: REQUESTED ACTION jim 02/11/07 at 12:06 pm: MEDICATION REQUEST: MEDICATIONS: ZOCOR ORAL TABLET 10 MG, 1 Every Day, 90 Dispensed, 90 Duration/Days Supply, status: NEW PRESCRIPTION, 12/13/2006. HYDROCHLOROTHIAZIDE ORAL TABLET 25 MG, 1 Every Day, 90 Dispensed, 90 Duration/Days Supply, status: NEW PRESCRIPTION, 12/13/2006. BENICAR ORAL TABLET 40 MG, 1 Every Day, 90 Dispensed, 90 Duration/Days Supply, status: NEW PRESCRIPTION, 12/13/2006. SECTION 2: DOCTOR`S RESPONSE: aakash 02/11/07 at 12:15 pm ok to refill for three months. FINAL ACTION: deyanira 02/11/07 at 02:58 pm Left message on patient`s recorder or with a family member 02/11/2007 at 02:58 pm. prescriptions printed out, signed and mailed to patient......kn Electronically Signed by: Eryn Dixon on Sunday, February 11, 2007 documented in this encounter Plan of Treatment Not on file documented as of this encounter Visit Diagnoses Not on filedocumented in this encounter Care Teams Glove Printer Relationship Specialty Start Date End Date Lokesh Mcdowell MD PCP - General 06/17/09 06/19/12 documented as of this encounter
--- OUTSIDE RECORDS SUMMARY | 2025-01-19 10:47 | XMS_ITS | Encounter Summary ---
Author Organization [employer] Address [address] [place] [address] Care Team Providers Care Nut Picker Name Role Phone Lokesh Mcdowell MD Primary Care Provider Unavailab le Encounter Details Date Type Department Care Team (Late st Contact Info) Description 06/19/2002 Outpatient Historical [facility] INTERNISTS Adam Kimble MD [address] [place] [address] Social History Tobacco Use Types Packs/Day Years Used Date Smoking Tobacco: Never Assessed Sex and Gender Information Value Date Recorded Sex Assigned at Not on file Legal Sex Male 3:35 AM MOTOR WINDER Gender Identity Not on file Sexual Orientation Not on file documented as of this encounter Plan of Treatment Not on file documented as of this encounter Visit Diagnoses Not on filedocumented in this encounter Care Teams Nut Picker Relationship Specialty Start Date End Date Lokesh Mcdowell MD PCP - General 06/17/09 06/19/12 documented as of this encounter
--- OUTSIDE RECORDS SUMMARY | 2025-01-19 10:47 | XMS_ITS | Encounter Summary ---
Author Organization [employer] Address [address] [place] [address] Care Team Providers Care Manager Market Name Role Phone Lokesh Mcdowell MD Primary Care Provider Unavailab le Encounter Details Date Type Department Care Team (Late st Contact Info) Description 05/10/2006 Outpatient Historical [facility], [address] Herrera Yu MD NO ADDRESS ON FILE Social History Tobacco Use Types Packs/Day Years Used Date Smoking Tobacco: Never Assessed Sex and Gender Information Value Date Recorded Sex Assigned at Not on file Legal Sex Male 3:35 AM E LEARNING DESIGNER Gender Identity Not on file Sexual Orientation Not on file documented as of this encounter Plan of Treatment Not on file documented as of this encounter Procedures Procedure Name Priority Date/Time Associated Diagnosis Comments CBC WITH DIFFERENTIAL Routine 05/10/2006 1:51 PM E LEARNING DESIGNER CBC WITH DIFFERENTIAL Routine 05/10/2006 1:51 PM E LEARNING DESIGNER URINALYSIS W/REFLEX MICROSCOPIC Routine 05/10/2006 1:51 PM E LEARNING DESIGNER TSH Routine 05/10/2006 1:51 PM E LEARNING DESIGNER PSA Routine 05/10/2006 1:51 PM E LEARNING DESIGNER LIPID PANEL Routine 05/10/2006 1:51 PM E LEARNING DESIGNER COMPREHENSIVE METABOLIC PANEL Routine 05/10/2006 1:51 PM E LEARNING DESIGNER documented in this encounter Results * URINALYSIS (05/10/2006 1:51 PM E LEARNING DESIGNER) COLOR UA Pale Yellow INTERFAC E SYSTEM CLARITY UA Clear Clear INTERFACE SYSTEM SPECIFIC GRAVITY UA 1.005 1.001 - 1.035 INTERFACE SYSTEM PH UA 7.0 5.0 - 8.0 INTERFACE SYSTEM LEUKOCYTE ESTERASE UA Negative Negative INTERFACE SYSTEM NITRITE UA Negative Negative INTERFACE SYSTEM PROTEIN UA Negative Negative INTERFACE SYSTEM GLUCOSE UA Negative Negative INTERFACE SYSTEM KETONES UA Negative Negative INTERFACE SYSTEM UROBILINOGEN UA <1 <=1 mg/dL INTE RFACE SYSTEM BILIRUBIN UA Negative Negative INTERFA CE SYSTEM BLOOD UA Negative Negative INTERFACE SYSTEM 05/10/2006 1:51 PM E LEARNING DESIGNER Herrera Yu MD URINE ORDERABLES Final Result Performing Organization Address [facility] Phone Number INTERFACE SYSTEM Refer to clinic/hospital department * CBC WITH DIFFERENTIAL (05/10/2006 1:51 PM E LEARNING DESIGNER) NEUTROPHILS 61 45 - 70 % INTERFAC E SYSTEM LYMPHOCYTES 29 16 - 45 % INTERFAC E SYSTEM MONOCYTES 8 3 - 13 % INTERFACE SYSTEM EOSINOPHILS 2 0 - 7 % INTERFAC E SYSTEM BASOPHILS 1 0 - 2 % INTERFACE SYSTEM NEUTROPHIL ABSOLUTE 4.24 1.90 - 7.00 K/uL INTERFACE SYSTEM LYMPHOCYTE ABSOLUTE 2.00 0.70 - 4.50 K/uL INTERFACE SYSTEM MONOCYTE ABSOLUTE 0.55 0.10 - 1.30 K/uL INTERFACE SYSTEM EOSINOPHIL ABSOLUTE 0.14 0.00 - 0.70 K/uL INTERFACE SYSTEM BASOPHILS ABSOLUTE 0.05 0.00 - 0.20 K/uL INTERFACE SYSTEM 05/10/2006 1:51 PM E LEARNING DESIGNER Herrera Yu MD HEMATOLOGY ORDERABLES Final R esult Performing Organization Address [facility] Phone Number INTERFACE SYSTEM Refer to clinic/hospital department * CBC WITH DIFFERENTIAL (05/10/2006 1:51 PM E LEARNING DESIGNER) WBC 7.0 4.0 - 9.8 K/uL INTERFACE SYSTEM RBC 5.20 4.50 - 5.40 M/uL INTERFACE SYSTEM HEMOGLOBIN 15.6 13.6 - 16.5 g/dL INTERFACE SYSTEM HEMATOCRIT 45.0 40.0 - 48.0 % INTERFACE SYSTEM MCV 86.5 82.0 - 99.0 fL INTERFACE SYSTEM MCH 30.0 27.2 - 32.6 pg INTERFACE SYSTEM MCHC 34.7 31.5 - 35.5 % INTERFACE SYSTEM RDW 13.0 11.5 - 14.5 % INTERFACE SYSTEM RDW-STDEV 41.1 37.1 - 48.7 fL INTERFACE SYSTEM PLATELETS 251 140 - 350 K/uL INTERFACE SYSTEM MPV 11.1 9.3 - 12.4 fL INTERFACE SYSTEM 05/10/2006 1:51 PM E LEARNING DESIGNER Herrera Yu MD HEMATOLOGY ORDERABLES Final R esult Performing Organization Address [facility] Phone Number INTERFACE SYSTEM Refer to clinic/hospital department * TSH (05/10/2006 1:51 PM E LEARNING DESIGNER) TSH 1.04 0.27 - 4.20 uU/mL INTERFACE SYSTEM 05/10/2006 1:51 PM E LEARNING DESIGNER Herrera Yu MD CHEMISTRY ORDERABLES Final Re sult Performing Organization Address [facility] id Phone Number INTERFACE SYSTEM Refer to clinic/hospital department * PSA (05/10/2006 1:51 PM E LEARNING DESIGNER) PSA 1.1 0.0 - 4.0 ng/mL INTERFACE SYSTEM Comment:Performed on [employer]band E170 System 05/10/2006 1:51 PM E LEARNING DESIGNER Herrera Yu MD CHEMISTRY ORDERABLES Final Re sult Performing Organization Address [facility] Co de Phone Number INTERFACE SYSTEM Refer to clinic/hospital department * (ABNORMAL) LIPID PANEL (05/10/2006 1:51 PM E LEARNING DESIGNER) CHOLESTEROL 176 100 - 199 mg/dL INTERFACE SYSTEM TRIGLYCERIDE 97 10 - 149 mg/dL INTERFACE SYSTEM HDL 62(H) 40 - 59 mg/dL INTERFACE SYSTEM CHOL/HDL RATIO 2.8 2.0 - 5.0 INTER FACE SYSTEM LDL CALCULATED 95 <=99 mg/dL INTERFACE SYSTEM LIPID PANEL COMMENT See Below INTERFACE SYSTEM Comment: The adult ATP and pediatric NCEP classifications for lipids are available on the [facility] Intranet at: [email or web address] Select: Lab Policies and Procedures Select: Reference Ranges - Lipids 05/10/2006 1:51 PM E LEARNING DESIGNER Herrera Yu MD CHEMISTRY ORDERABLES Final Re sult INTERFACE SYSTEM Refer to clinic/hospital department * (ABNORMAL) COMPREHENSIVE METABOLIC PANEL (05/10/2006 1:51 PM E LEARNING DESIGNER) GLUCOSE 87 65 - 99 mg/dL INTERFACE SYSTEM CREATININE 0.90 0.67 - 1.17 mg/dL INTERFACE SYSTEM Comment:Note: Effective 03/28 New Methodolgy and Reference Ranges CALCIUM 9.4 8.4 - 10.2 mg/dL INTERFACE SYSTEM ALKALINE PHOSPHATASE 98 40 - 129 U/L INTERFACE SYSTEM AST 30 12 - 38 U/L INTERFACE SYSTEM ALT 51(H) 0 - 41 U/L INTERFACE SYSTEM TOTAL PROTEIN 7.7 6.3 - 8.6 g/dL INTERFACE SYSTEM ALBUMIN 4.6 3.4 - 4.8 g/dL INTERFACE SYSTEM BILIRUBIN TOTAL 0.6 0.2 - 1.0 mg/dL INTERFACE SYSTEM BUN 13 6 - 20 mg/dL INTERFACE SYSTEM SODIUM 139 135 - 145 mmol/L INTERFACE SYSTEM POTASSIUM 4.1 3.5 - 4.9 mmol/L INTERFACE SYSTEM CHLORIDE 98 96 - 108 mmol/L INTERFACE SYSTEM CO2 28 22 - 30 mmol/L INTERFACE SYSTEM GFR, >60 >=60 mL/min/1.7 sq meter INTERFACE SYSTEM GFR >60 >=60 mL/min/1.7 sq meter INTERFACE SYSTEM Comment: Estimated GFR rate interpretative information for both Americans and non- Americans is available on the [facility] Intranet at: [email or web address] Select: Lab Policies and Procedures Select: Reference Ranges - GFR 05/10/2006 1:51 PM E LEARNING DESIGNER us Herrera Yu MD CHEMISTRY ORDERABLES Final Re sult INTERFACE SYSTEM Refer to clinic/hospital department documented in this encounter Visit Diagnoses Not on filedocumented in this encounter Care Teams Manager Market Relationship Specialty Start Date End Date Lokesh Mcdowell MD PCP - General 06/17/09 06/19/12 documented as of this encounter
--- OUTSIDE RECORDS SUMMARY | 2025-01-19 10:47 | XMS_ITS | Encounter Summary ---
Author Organization [employer] Address 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
--- OUTSIDE RECORDS SUMMARY | 2025-01-19 10:47 | XMS_ITS | Encounter Summary ---
Author Organization [facility] Address [address] [place] [address] Care Team Providers Care Oilseed Meat Presser Name Role Phone Lokesh Mcdowell MD Primary Care Provider Unavailab le Encounter Details Date Type Department Care Team (Late st Contact Info) Description 09/09/2007 Orders Only [facility] Internal Medicine Medical [place] [facility] [address] [facility] [address] [address] Mayelin Ramirez MD [facility] [address] [place] [address] Social History Tobacco Use Types Packs/Day Years Used Date Smoking Tobacco: Never Assessed Sex and Gender Information Value Date Recorded Sex Assigned at Not on file Legal 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
--- OUTSIDE RECORDS SUMMARY | 2025-01-19 10:47 | XMS_ITS | Encounter Summary ---
Author Organization [employer] Address 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
--- OUTSIDE RECORDS SUMMARY | 2025-01-19 10:47 | XMS_ITS | Encounter Summary ---
Author Organization [employer] Address [address] [place] [address] Care Team Providers Care Family Law Mediator Name Role Phone Lokesh Mcdowell MD Primary Care Provider Unavailab le Encounter Details Date Type Department Care Team (Latest Contact Info) Description 05/10/2006 Outpatient Historical [facility] Yu, Herrera Reddy MD NO ADDRESS ON FILE Cough (Primary Dx) Social History Tobacco Use Types Packs/Day Years Used Date Smoking Tobacco: Never Assessed Sex and Gender Information Value Date Recorded Sex Assigned at Not on file Legal Sex Male 3:35 AM ORBITREAD OPERATOR Gender Identity Not on file Sexual Orientation Not on file documented as of this encounter Plan of Treatment Not on file documented as of this encounter Visit Diagnoses Diagnosis Cough- Primary documented in this encounter Care Teams Family Law Mediator Relationship Specialty Start Date End Date Lokesh Mcdowell MD PCP - General 06/17/09 06/19/12 documented as of this encounter
--- OUTSIDE RECORDS SUMMARY | 2025-01-19 10:47 | XMS_ITS | Encounter Summary ---
Author Organization [employer] Address [address] [place] [address] Care Team Providers Care Claim Trainee Name Role Phone Lokesh Mcdowell MD Primary Care Provider Unavailab le Encounter Details Date Type Department Care Team (Late st Contact Info) Description 05/05/2003 Outpatient Historical [facility] INTERNISTS Adam Kimble MD [address] [place] [address] Social History Tobacco Use Types Packs/Day Years Used Date Smoking Tobacco: Never Assessed Sex and Gender Information Value Date Recorded Sex Assigned at Not on file Legal Sex Male 3:35 AM WARP STARTER Gender Identity Not on file Sexual Orientation Not on file documented as of this encounter Plan of Treatment Not on file documented as of this encounter Visit Diagnoses Not on filedocumented in this encounter Care Teams Claim Trainee Relationship Specialty Start Date End Date Lokesh Mcdowell MD PCP - General 06/17/09 06/19/12 documented as of this encounter
--- OUTSIDE RECORDS SUMMARY | 2025-01-19 10:47 | XMS_ITS | Encounter Summary ---
Author Organization [employer] Address 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 Gender Identity Not on file Sexual Orientation Not on file documented as of this encounter Plan of Treatment Not on file documented as of this encounter Procedures Procedure Name Priority Date/Time Associated Diagnosis Comments CBC WITH DIFFERENTIAL Routine 06/08/2004 3:03 PM WATER TAXI FERRY OPERATOR CBC WITH DIFFERENTIAL Routine 06/08/2004 3:03 PM WATER TAXI FERRY OPERATOR URINALYSIS W/REFLEX MICROSCOPIC Routine 06/08/2004 3:03 PM WATER TAXI FERRY OPERATOR TSH Routine 06/08/2004 3:03 PM WATER TAXI FERRY OPERATOR PSA Routine 06/08/2004 3:03 PM WATER TAXI FERRY OPERATOR LIPID PANEL Routine 06/08/2004 3:03 PM WATER TAXI FERRY OPERATOR COMPREHENSIVE METABOLIC PANEL Routine 06/08/2004 3:03 PM WATER TAXI FERRY OPERATOR documented in this encounter Results * URINALYSIS (06/08/2004 3:03 PM WATER TAXI FERRY OPERATOR) COLOR UA Yellow INTERFACE SYSTEM CLARITY UA Clear Clear INTERFACE SYSTEM SPECIFIC GRAVITY UA 1.015 1.001 - 1.035 INTERFACE SYSTEM PH UA 7.0 5.0 - 8.0 INTERFACE SYSTEM LEUKOCYTE ESTERASE UA Negative Negative INTERFACE SYSTEM NITRITE UA Negative Negative INTERFACE SYSTEM PROTEIN UA Negative Negative INTERFACE SYSTEM GLUCOSE UA Negative Negative INTERFACE SYSTEM KETONES UA Negative Negative INTERFACE SYSTEM UROBILINOGEN UA <1 <1 EU INTE RFACE SYSTEM BILIRUBIN UA Negative Negative INTERFA CE SYSTEM BLOOD UA Negative Negative INTERFACE SYSTEM 06/08/2004 3:03 PM WATER TAXI FERRY OPERATOR us Adam Kimble MD URINE ORDERABLES Final Result Performing Organization Address City/[facility] Phone Number INTERFACE SYSTEM Refer to clinic/hospital department * PSA (06/08/2004 3:03 PM WATER TAXI FERRY OPERATOR) PSA 1.0 0.0 - 4.0 ng/mL INTERFACE SYSTEM Comment:Performed on [employer] E170 System 06/08/2004 3:03 PM WATER TAXI FERRY OPERATOR us Adam Kimbel MD CHEMISTRY ORDERABLES Final Resul t Performing Organization Address [facility] Phone Number INTERFACE SYSTEM Refer to clinic/hospital department * (ABNORMAL) LIPID PANEL (06/08/2004 3:03 PM WATER TAXI FERRY OPERATOR) CHOLESTEROL 165 100 - 199 mg/dL INTERFACE SYSTEM TRIGLYCERIDE 75 10 - 149 mg/dL INTERFACE SYSTEM HDL 62(H) 40 - 59 mg/dL INTERFACE SYSTEM LDL CALCULATED 88 <=99 mg/dL INTERFACE SYSTEM CHOL/HDL RATIO 2.7 2.0 - 5.0 INTER FACE SYSTEM Comment:See [...] <110 Borderline 110 - 129 High >=130 06/08/2004 3:03 PM WATER TAXI FERRY OPERATOR us Adam Kimble MD CHEMISTRY ORDERABLES Final Resul t Performing Organization Address City/[facility] Co de Phone Number INTERFACE SYSTEM Refer to clinic/hospital department * (ABNORMAL) COMPREHENSIVE METABOLIC PANEL (06/08/2004 3:03 PM WATER TAXI FERRY OPERATOR) GLUCOSE 73 65 - 109 mg/dL INTERFACE SYSTEM CREATININE 1.0 0.5 - 1.3 mg/dL INTERFACE SYSTEM CALCIUM 10.0 8.6 - 10.2 mg/dL INTERFACE SYSTEM AST 24 12 - 38 U/L INTERFACE SYSTEM ALKALINE PHOSPHATASE 100 40 - 129 U/L INTERFACE SYSTEM BUN 16 6 - 20 mg/dL INTERFACE SYSTEM BILIRUBIN TOTAL 0.5 0.2 - 1.0 mg/dL INTERFACE SYSTEM ALBUMIN 4.7 3.4 - 4.8 g/dL INTERFACE SYSTEM TOTAL PROTEIN 7.8 6.3 - 8.6 g/dL INTERFACE SYSTEM ALT 42(H) 0 - 41 U/L INTERFACE SYSTEM SODIUM 140 135 - 145 mmol/L INTERFACE SYSTEM POTASSIUM 3.6 3.5 - 4.9 mmol/L INTERFACE SYSTEM CHLORIDE 99 96 - 108 mmol/L INTERFACE SYSTEM CO2 27 22 - 30 mmol/L INTERFACE SYSTEM 06/08/2004 3:03 PM WATER TAXI FERRY OPERATOR us Adam Kimble MD CHEMISTRY ORDERABLES Final Resul t Performing Organization Address City/[facility] Co de Phone Number INTERFACE SYSTEM Refer to clinic/hospital department * CBC WITH DIFFERENTIAL (06/08/2004 3:03 PM WATER TAXI FERRY OPERATOR) NEUTROPHILS 63 45 - 70 % INTERFAC E SYSTEM LYMPHOCYTES 24 16 - 45 % INTERFAC E SYSTEM MONOCYTES 10 3 - 13 % INTERFACE SYSTEM EOSINOPHILS 3 0 - 7 % INTERFAC E SYSTEM BASOPHILS 1 0 - 2 % INTERFACE SYSTEM NEUTROPHIL ABSOLUTE 4.66 1.90 - 7.00 K/uL INTERFACE SYSTEM LYMPHOCYTE ABSOLUTE 1.75 0.70 - 4.50 K/uL INTERFACE SYSTEM MONOCYTE ABSOLUTE 0.74 0.10 - 1.30 K/uL INTERFACE SYSTEM EOSINOPHIL ABSOLUTE 0.25 0.00 - 0.70 K/uL INTERFACE SYSTEM BASOPHILS ABSOLUTE 0.04 0.00 - 0.20 K/uL INTERFACE SYSTEM 06/08/2004 3:03 PM WATER TAXI FERRY OPERATOR Adam Kimble MD HEMATOLOGY ORDERABLES Final Resu lt Performing Organization Address City/[facility] de Phone Number INTERFACE SYSTEM Refer to clinic/hospital department * CBC WITH DIFFERENTIAL (06/08/2004 3:03 PM WATER TAXI FERRY OPERATOR) WBC 7.4 4.0 - 9.8 K/uL INTERFACE SYSTEM RBC 5.35 4.50 - 5.40 M/uL INTERFACE SYSTEM HEMOGLOBIN 16.1 13.6 - 16.5 g/dL INTERFACE SYSTEM HEMATOCRIT 47.0 40.0 - 48.0 % INTERFACE SYSTEM MCV 87.9 82.0 - 99.0 fL INTERFACE SYSTEM MCH 30.1 27.2 - 32.6 pg INTERFACE SYSTEM MCHC 34.3 31.5 - 35.5 % INTERFACE SYSTEM RDW 13.2 11.5 - 14.5 % INTERFACE SYSTEM RDW-STDEV 42.0 37.1 - 48.7 fL INTERFACE SYSTEM PLATELETS 240 140 - 350 K/uL INTERFACE SYSTEM MPV 11.4 9.3 - 12.4 fL INTERFACE SYSTEM 06/08/2004 3:03 PM WATER TAXI FERRY OPERATOR Adam Kimble MD HEMATOLOGY ORDERABLES Final Resu lt Performing Organization Address City/[facility] Co de Phone Number INTERFACE SYSTEM Refer to clinic/hospital department * TSH (06/08/2004 3:03 PM WATER TAXI FERRY OPERATOR) TSH 0.86 0.27 - 4.20 uU/mL INTERFACE SYSTEM 06/08/2004 3:03 PM WATER TAXI FERRY OPERATOR us Adam Kimble MD CHEMISTRY ORDERABLES Final Resul t INTERFACE SYSTEM Refer to clinic/hospital department documented in this encounter Visit Diagnoses Not on filedocumented in this encounter Care Teams Seam Press Operator Relationship Specialty Start Date End Date Lokesh Mcdowell MD PCP - General 06/17/09 06/19/12 documented as of this encounter
--- OUTSIDE RECORDS SUMMARY | 2025-01-19 10:47 | XMS_ITS | Encounter Summary ---
Author Organization [employer] Address 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
--- OUTSIDE RECORDS SUMMARY | 2025-01-19 10:47 | XMS_ITS | Encounter Summary ---
Author Organization [employer] Address [address] [place] [address] Care Team Providers Care Visual Specialist Name Role Phone Lokesh Mcdowell MD Primary Care Provider Unavailab le Encounter Details Date Type Department Care Team (Late st Contact Info) Description 07/12/2006 Outpatient Historical [facility], [address] Herrera Yu MD NO ADDRESS ON FILE Social History Tobacco Use Types Packs/Day Years Used Date Smoking Tobacco: Never Assessed Sex and Gender Information Value Date Recorded Sex Assigned at Not on file Legal Sex Male 3:35 AM LIGHTNING ROD ERECTOR Gender Identity Not on file Sexual Orientation Not on file documented as of this encounter Plan of Treatment Not on file documented as of this encounter Procedures Procedure Name Priority Date/Time Associated Diagnosis Comments BASIC METABOLIC PANEL Routine 07/12/2006 8:31 PM LIGHTNING ROD ERECTOR documented in this encounter Results * (ABNORMAL) BASIC METABOLIC PANEL (07/12/2006 8:31 PM LIGHTNING ROD ERECTOR) GLUCOSE 84 65 - 99 mg/dL INTERFACE SYSTEM CREATININE 0.92 0.67 - 1.17 mg/dL INTERFACE SYSTEM CALCIUM 9.8 8.4 - 10.2 mg/dL INTERFACE SYSTEM BUN 15 6 - 20 mg/dL INTERFACE SYSTEM SODIUM 138 135 - 145 mmol/L INTERFACE SYSTEM POTASSIUM 6.5(AA) 3.5 - 4.9 mmol/L INTERFACE SYSTEM Comment:No significant hemol ysis CHLORIDE 101 96 - 108 mmol/L INTERFACE SYSTEM CO2 31(H) 22 - 30 mmol/L INTERFACE SYSTEM GFR, >60 >=60 mL/min/1. 7 sq meter INTERFACE SYSTEM GFR >60 >=60 mL/min/1. 7 sq meter INTERFACE SYSTEM Comment: Estimated GFR rate interpretative information for both Americans and non- Americans is available on the [facility] at: [email or web address] Select: Lab Policies and Procedures Select: Reference Ranges - GFR 07/12/2006 8:31 PM LIGHTNING ROD ERECTOR us Herrera Yu MD CHEMISTRY ORDERABLES Edited INTERFACE SYSTEM Refer to clinic/hospital department documented in this encounter Visit Diagnoses Not on filedocumented in this encounter Care Teams Visual Specialist Relationship Specialty Start Date End Date Lokesh Mcdowell MD PCP - General 06/17/09 06/19/12 documented as of this encounter
--- OUTSIDE RECORDS SUMMARY | 2025-01-19 10:47 | XMS_ITS | Encounter Summary ---
Author Organization [employer] Address [address] [place] [address] Care Team Providers Care In School Suspension Aide Name Role Phone Lokesh Mcdowell MD Primary Care Provider Unavailab le Encounter Details Date Type Department Care Team (Late st Contact Info) Description 02/22/2006 Outpatient Historical [facility] Herrera Yu MD NO ADDRESS ON FILE Social History Tobacco Use Types Packs/Day Years Used Date Smoking Tobacco: Never Assessed Sex and Gender Information Value Date Recorded Sex Assigned at Not on file Legal Sex Male 3:35 AM ENGINEERING ILLUSTRATOR Gender Identity Not on file Sexual Orientation Not on file documented as of this encounter Plan of Treatment Not on file documented as of this encounter Visit Diagnoses Not on filedocumented in this encounter Care Teams In School Suspension Aide Relationship Specialty Start Date End Date Lokesh Mcdowell MD PCP - General 06/17/09 06/19/12 documented as of this encounter
--- OUTSIDE RECORDS SUMMARY | 2025-01-19 10:47 | XMS_ITS | Encounter Summary ---
Author Organization [facility] Address [address] [place] [address] Care Team Providers Care Crm Specialist Name Role Phone Lokesh Mcdowell MD Primary Care Provider Unavailab le Encounter Details Date Type Department Care Team (Late st Contact Info) Description 12/13/2006 Outpatient Historical [facility] Internal Medicine Medical [facility] [address] [facility] [place] [address] Carlos Randall MD [address] 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 Male 3:35 AM PLANT OPERATOR Gender Identity Not on file Sexual Orientation Not on file documented as of this encounter Last Filed Vital Signs Vital Sign Reading Time Taken Comments Blood Pressure 120/70 12/13/2006 11:00 AM CDT Pulse 80 12/13/2006 11:00 AM CDT Temperature - - Respiratory Rate - - Oxygen Saturation - - Inhaled Oxygen Concentration - - Weight 90.7 kg (200 lb) 12/13/2006 11:00 AM CDT Height 175.3 cm (5' 9) 12/13/2006 11:00 AM CDT Body Mass Index 29.53 12/13/2006 11:00 AM CDT documented in this encounter Plan of Treatment Not on file documented as of this encounter Visit Diagnoses Not on filedocumented in this encounter Care Teams Crm Specialist Relationship Specialty Start Date End Date Lokesh Mcdowell MD PCP - General 06/17/09 06/19/12 documented as of this encounter
--- OUTSIDE RECORDS SUMMARY | 2025-01-19 10:48 | XMS_ITS | Encounter Summary ---
Author Organization [employer] Address [address] [place] [address] Care Team Providers Care Restorer Paper And Prints Name Role Phone Lokesh Mcdowell MD Primary Care Provider Unavailab le Encounter Details Date Type Department Care Team (Late st Contact Info) Description 07/13/2006 Outpatient Historical [facility] Herrera Yu MD NO ADDRESS ON FILE Social History Tobacco Use Types Packs/Day Years Used Date Smoking Tobacco: Never Assessed Sex and Gender Information Value Date Recorded Sex Assigned at Not on file Legal Sex Male 3:35 AM STRIPPER AND TAPER Gender Identity Not on file Sexual Orientation Not on file documented as of this encounter Plan of Treatment Not on file documented as of this encounter Visit Diagnoses Not on filedocumented in this encounter Care Teams Restorer Paper And Prints Relationship Specialty Start Date End Date Lokesh Mcdowell MD PCP - General 06/17/09 06/19/12 documented as of this encounter
--- OUTSIDE RECORDS SUMMARY | 2025-01-19 10:48 | XMS_ITS | Clinical Summary ---
Author Organization [facility] Address [address] [place] [address] Care Team Providers Care Fishing Boat Captain Name Role Phone Unavailable Primary Care Provider Unavailabl e Source Comments [facility] Affiliates and Associated Physician Practices is amultiple site organization consisting of ambulatory clinics and hospital sitesin [place], [place], [place] and [place]. This disclosure is being madepursuant to the Care Everywhere program and may not contain all information available regarding this patient. 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 Gender Identity Not on file Sexual Orientation Not on file Plan of Treatment Health Maintenance Due Date Last Done Comments COLOGUARD (AGES 45-75) - COL ON CA SCREENING 1951 COLON MONITORING 1951 COLONOSCOPY - COLON CA SCREENING 1951 CT COLONOGRAPHY - COLON CA SCREENING 1950 Colorectal Cancer Screening 1950 FIT - COLON CA SCREENING 1950 FLEX SIG - COLON CA SCREENING 1950 LIPID TESTING 1950 HEPATITIS C SCREENING 03/06/1969 DTAP/TDAP/TD VACCINES (1 - Tdap) 1970 PNEUMOCOCCAL VACCINE 50+ (1 of 1 - PCV) 2001 ZOSTER VACCINE (1 of 2) 2001 COVID-19 VACCINE ( - 2023-2 5 season) 2024 DEPRESSION SCREENING 05/28/2024 INFLUENZA VACCINE (#1) 2025 Respiratory Syncytial Virus (RSV) Vaccine Pt: or over 60 yrs (1 - 1-dose 75+ series) 2026 HEPATITIS B VACCINE Aged Out No longe r eligible based on patient's age to complete this topic HIB VACCINE Aged Out No longer eligi ble based on patient's age to complete this topic HPV VACCINE Aged Out No longer eligi ble based on patient's age to complete this topic MENINGOCOCCAL (Group B) VACC INE SHARED DECISION-MAKING Aged Out No longer eligibl e based on patient's age to complete this topic MENINGOCOCCAL GROUPS A/C/Y/W VACCINE Aged Out No longer eligible b ased on patient's age to complete this topic
--- OUTSIDE RECORDS SUMMARY | 2025-01-19 10:48 | XMS_ITS | Encounter Summary ---
Author Organization [employer] Address [address] [place] [address] Care Team Providers Care Sign Builder Name Role Phone Lokesh Mcdowell MD Primary Care Provider Unavailab le Encounter Details Date Type Department Care Team (Late st Contact Info) Description 02/09/2000 Outpatient Historical [facility] Adam Kimble MD [address] [place] [id number] Social History Tobacco Use Types Packs/Day Years Used Date Smoking Tobacco: Never Assessed Sex and Gender Information Value Date Recorded Sex Assigned at Not on file Legal Sex Male 3:35 AM MANAGER DIGITAL Gender Identity Not on file Sexual Orientation Not on file documented as of this encounter Plan of Treatment Not on file documented as of this encounter Visit Diagnoses Not on filedocumented in this encounter Care Teams Sign Builder Relationship Specialty Start Date End Date Lokesh Mcdowell MD PCP - General 06/17/09 06/19/12 documented as of this encounter
--- OUTSIDE RECORDS SUMMARY | 2025-01-19 10:48 | XMS_ITS | Encounter Summary ---
Author Organization [employer] Address [address] [place] [address] Care Team Providers Care Process Coach Name Role Phone Lokesh Mcdowell MD Primary Care Provider Unavailab le Encounter Details Date Type Department Care Team (Late st Contact Info) Description 03/31/1999 Outpatient Historical 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
--- OUTSIDE RECORDS SUMMARY | 2025-01-19 10:48 | XMS_ITS | Clinical Summary ---
Author Organization [facility] [address] [facility] Address [address] [place] [address] Care Team Providers Care Electric Milkers Installer Name Role Phone Konstantin Ferro MD Primary Care Provider [phone] Allergies Active Allergy Reactions Criticality Noted Date Comments Cephalexin Fatigue Low 03/10/2019 Caused bleeding of the nose and mouth. Nebivolol-Valsartan Cough Low 01/08/2024 Medications multivit with minerals/lutein (MULTIVITAMIN 50 PLUS ORAL) Take 2 tablets by mouth daily Active ibuprofen (ADVIL,MOTRIN) 200 mg tab/cap 1 tablet/capsule (200 mg total) every 6 (six) hours Active omega-3 fatty acids-fish oil 300-1,000 mg capsule Take 1 tablet by mouth daily Active nutrit supp/inulin/FOS/ fiber (NUTREN 1.5 FIBER ORAL) Take 2 tablets by mouth daily Active nebivoloL (BYSTOLIC) 5 mg tabletIndication s:Dyslipidemia with elevated low density lipoprotein (LDL) cholesterol and abnormally low high density lipoprotein cholesterol Take 1 tablet (5 mg total) by mouth daily 90 tablet 3 2 Active Additional Information Patient not taking.Reported on 01/08/2024 simvastatin (ZOCOR) 20 mg tablet Take 0.5 tablets (10 mg total) by mouth nightly 90 tablet 3 2 Active amLODIPine (NORVASC) 10 mg tabletIndication s:Benign essential HTN Take 1 tablet (10 mg total) by mouth daily 90 tablet 3 2 Active azelastine (ASTELIN) 137 mcg (0.1 %) nasal sprayIndications :Chronic seasonal allergic rhinitis ADMINISTER 1 SPRAY INTO EACH NOSTRIL NIGHTLY USE IN EACH NOSTRIL DIRECTED 30 mL 1 3 Active hydroCHLOROthiaz gerardo (HYDRODIURIL) 25 mg tablet Take 1 tablet (25 mg total) by mouth daily Active cetirizine (ZyrTEC) 10 mg tablet Take 1 tablet (10 mg total) by mouth daily Active albuterol HFA (PROVENTIL HFA,VENTOLIN HFA,PROAIR HFA) 90 mcg/actuation inhaler Inhale 2 puffs every 6 (six) hours as needed for wheezing Active omeprazole (PriLOSEC) 40 mg capsule TAKE 1 CAPSULE BY MOUTH TWICE A DAY 180 capsule 5 Active Active Problems Problem Noted Date Diagnosed Date Chronic cough 01/08/2024 Laryngopharyngeal reflux 01/08/2024 Assessment & Plan (01/08/2024 12:37 PM CDT): I think his cough may be due to reflux disease. We discussed laryngopharyngeal reflux disease. It could be causing these symptoms. It can be improved through dietary management and we talked about various dietary changes to consider. Also discussed aggressive treatment through twice a day proton pump inhibitors. I also provided some literature regarding this type of reflux and this included instructions on dietary management. We also discussed the potential long-term side effects of proton pump inhibitors including liver and kidney disease and increased risk of dementia. I do not intend to continue treatment with this medication indefinitely unless there was no other way to get the symptoms under control and the patient wishes to continue taking them. He would like to do the course of twice a day therapy for a while. I also discussed dietary management as well as avoiding caffeinated beverages along with carbonated beverages. Also avoid anything with mint or menthol. He understands. He has no questions. Tonsillith 01/08/2024 Assessment & Plan (01/08/2024 12:38 PM CDT): I indicated that the only real good way to address tonsil stones is to remove the tonsils. I did not strongly recommended. He has not interested in pursuing that either. Mild intermittent asthma without complication Nonsmoker 01/08/2024 Dyslipidemia with elevated l ow density lipoprotein (LDL) cholesterol and abnormally low high density lipoprotein cholesterol 05/17/2022 Overview (05/17/2022): conditon chronic and at goal continue the zocor Bilateral sensorineural hearing loss 07/24/2018 Elevated cholesterol 05/01/2016 Chronic seasonal allergic rhinitis 11/09/2015 Benign essential HTN 12/13/2006 Resolved Problems Problem Noted Date Diagnosed Date Resolved Date Type 2 diabetes mellitus wit h other specified complication 08/10/2016 02/11/2020 Immunizations Immunization Administration Dates Next Due Influenza, Quadrivalent, Hig h Dose, Preservative Free, Intrr 05/17/2022 Influenza, Quadrivalent, Spl it, Preservative Free, Intramuscular 03/04/2020 Influenza, Trivalent, High D ose, Split, Preservative Free, Intramuscular 03/21/2018 Influenza, Unspecified 01/26/2021 Pneumococcal Conjugate PCV 13 10/25/2017 Pneumococcal Polysaccharide PPV23 10/29/2019 Tdap 06/07/2010 Surgical History Surgery Date Site/Laterality Comments KNEE SURGERY Left CATARACT EXTRACTION Rt eye NOSE SURGERY KIDNEY STONE SURGERY 02/25/2023 - 03/27/2023 Medical History Medical History Date Comments HTN (hypertension) Sinusitis Allergic rhinitis Heart disease Cough HL (hearing loss) Family History Medical History Relation Name Comments No Known Problems Brother 1 Emphysema Father smoker No Known Problems Maternal Grandfather No Known Problems Maternal Grandmother Cataracts Mother Hearing loss Mother No Known Problems Paternal Grandfather No Known Problems Paternal Grandmother No Known Problems Son 2 Abdominal Aortic Aneurysm Neg Hx Cancer Neg Hx Lung disease Neg Hx Relation Name Status Comments Brother 1 Alive Father COPD Maternal Grandfather Maternal Grandmother Mother COPD Paternal Grandfather Paternal Grandmother Son 2 Alive Social History Tobacco Use Types Packs/Day Years Used Date Smoking Tobacco: Never Smokeless Tobacco: Never Tobacco Cessation:Counseling Given: Not Answered Alcohol Use Standard Drinks/Week Comments Never 0 (1 standard drink = 0.6 oz pur e alcohol) Humiliation, Afraid, Rape, and Kick questionnair e Answer Date Recorded Within the last year, have y ou been afraid of your partner or ex-partner? No 10/29/2019 Within the last year, have y ou been humiliated or emotionally abused in other ways by your partner or ex-partner? No Within the last year, have y ou been kicked, hit, slapped, or otherwise physically hurt by your partner or ex-partner? No 10/29/2019 Within the last year, have y ou been raped or forced to have any kind of sexual activity by your partner or ex-partner? No 10/29/2019 Social Connection and Isolation Panel Answer Date Recorded In a typical week, how many times do you talk on the phone with family, friends, or neighbors? More than three times a week 10/29/2019 How often do you get togethe r with friends or relatives? More than three times a week 10/29/2019 How often do you attend chur ch or hindu services? Never 10/29/2019 Do you belong to any clubs o r organizations such as latter-day groups, unions, fraternal or athletic groups, or school groups? Yes 10/29/2019 How often do you attend meet ings of the clubs or organizations you belong to? 1 to 4 times per year 10/29/2019 Are you , , di vorced, , never , or living with a partner? 10/29/2019 AUDIT-C Answer Date Recorded Q1: How often do you have a drink containing alcohol? Never 01/08/2024 Q2: How many drinks containi ng alcohol do you have on a typical day when you are drinking? Patient does not drink Q3: How often do you have si x or more drinks on one occasion? Never 01/08/2024 Overall Financial Resource Strain (CARDIA) Answe r Date Recorded How hard is it for you to pa y for the very basics like food, housing, medical care, and heating? Not hard at all 10/29/2019 PHQ-2 Answer Date Recorded PHQ-2 Total Score (If total score is 3 or more points, staff should administer the PHQ-9) 0 05/17/2022 [facility] - Occupational Stress Questionnaire Answer Date Recorded Do you feel stress - tense, restless, nervous, or anxious, or unable to sleep at night because your mind is troubled all the time - these days? Not at all 10/29/2019 Exercise Vital Sign Answer Date Recorde d On average, how many days pe r week do you engage in moderate to strenuous exercise (like a brisk walk)? 4 days 10/29/2019 On average, how many minutes do you engage in exercise at this level? 30 min 10/29/2019 Hunger Vital Sign Answer Date Recorded Within the past 12 months, y ou worried that your food would run out before you got the money to buy more. Never true 10/29/19 20 Within the past 12 months, t he food you bought just didn't last and you didn't have money to get more. Never true 10/29/2019 PRAPARE - Transportation Answer Date Re corded In the past 12 months, has l ack of transportation kept you from medical appointments or from getting medications? No 07/2019 In the past 12 months, has l ack of transportation kept you from meetings, work, or from getting things needed for daily living? No 10/29/2019 Personal Safety Answer Date Recorded Getting School Help Needed Not on file 05/19 Education Answer Date Recorded What is the highest level of school you have completed or the highest degree you have received? 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 Not on file Not on princess e Obstetrics History Last Filed Vital Signs Vital Sign Reading Time Taken Comments Blood Pressure 138/83 01/08/2024 1:04 PM CDT Pulse 103 01/08/2024 1:04 PM CDT Temperature 36.3 C (97.4 F) 05/17/2022 9:59 AM RADIOLOGIST Respiratory Rate 18 01/08/2024 1:04 PM CDT Oxygen Saturation 98% 01/08/2024 1:04 PM CDT Inhaled Oxygen Concentration - - Weight 89.8 kg (198 lb) 01/08/2024 1:04 PM CDT Height 175.3 cm (5' 9) 01/08/2024 1:04 PM CDT Body Mass Index 29.24 01/08/2024 1:04 PM CDT Plan of Treatment Health Maintenance Due Date Last Done Comments Hepatitis B Screening 1969 Zoster Vaccine (1 of 2) 2001 Abdominal Aortic Aneurysm (A AA) Screen 2016 Colon Cancer Screening-Colonoscopy 06/06/2020 06/06/2017 DTaP/Tdap/Td Vaccine (2 - Td or Tdap) 06/07/2020 06/07/2010 Well Visit 65+ 10/28/2020 10/29/2019 Fall Risk Assessment 02/03/2022 02/03/2021, 10/29/2019, 03/10/2019, Additional history exists Depression Screening 05/17/2023 05/17/2022, 02/03/2021, 10/29/2019, Additional history exists Covid-19 Vaccine (2023-2 5 season) 2024 08/12/2020, 07/15/2020 Influenza Vaccine (#1) 2025 2, 01/26/2021, 03/04/2020, Additional history exists Hepatitis C Screening Completed 07/16/2012 Colon Cancer Screening-CT Colonography Discontinued 06/11/2017, 06/06/2017 Colon Cancer Screening-DNA Stool Discontinued 06/11/19 18, 06/06/2017 Colon Cancer Screening-FIT Discontinued 06/11/2017, Colon Cancer Screening-Sigmoidoscopy Discontinued 06/11/2017, 06/06/2017 Pneumococcal vaccine 65+ Completed 10/29/2019, 09/27 Prostate Cancer Screening-PSA Discontinued , 02/11/2020, 04/10/2017, Additional history exists Procedures Procedure Name Priority Date/Time Associated Diagnosis Comments PSA SCREEN Routine 07/01/2022 6:53 AM RADIOLOGIST Prostate cancer screening [facility] CT COLONOGRAPHY Routine 06/11/2017 COLONOSCOPY Routine 06/06/2017 HEPATITIS PANEL, ACUTE Routine 07/16/2012 9:20 AM RADIOLOGIST from Last 3 Months or Most Recently Relevant to Health Maintenance Results * PSA screen (07/01/2022 6:53 AM RADIOLOGIST) [facility] PSA-Total 2.86 <=6.20 ng/mL DAMION JAIME Comment: Interpretive Data AGE SEX REFERENCE INTERVAL 0 minutes-150 years Female None 0 minutes-49 years Male None 50-59 years Male 0-3.90 60-69 years Male 0-5.40 70-79 years Male 0-6.20 80-150 years Male 0-6.20 The Janel PSA Total assay procedure was used. Results from different manufacturers or methods may not be comparable. Serial testing should be performed using the same method. Current interpretive data last revised 21. Testing performed by: [facility], [address] [place] [address]., [id number] Blood 07/01/2022 6:53 AM RADIOLOGIST 07/01/2022 6:59 AM RADIOLOGIST Kevin Araya MD LAB BLOOD ORDERABLES Final Re sult DAMION [address] [facility] Department [place] [address] * CT COLONOGRAPHY (06/11/2017) [facility] Scribed CT Colonography Normal Historical Provider HEALTH MAINTENANCE Final Result * Colonoscopy (06/06/2017) Anatomical Region Laterality Modality Other Historical Provider ENDOSCOPY PROCEDURES Mary l Result * Hepatitis panel, acute (07/16/2012 9:20 AM RADIOLOGIST) [facility] HepBsAg NONREACT NONREACTIVE 07/16/2012 12:[address] [facility] HISTORICAL RESULTS Comment: Siemens GenomeaurXP using ASHLEY (chemiluminescent immunoassay) technology. NONREACTIVE: IgM antibodies to Hepatitis B Surface antigen not detected. REACTIVE: IgM antibodies to Hepatitis B Surface antigen detected. Reactive results will be confirmed by neutralization testing. HBsAb (immune status) NONREACT NONREACTIVE 07/16/2012 12:[address] [facility] HISTORICAL RESULTS Comment: Siemens CentaurXP using ASHLEY (chemiluminescent immunoassay) technology. NONREACTIVE: IgM antibodies to Hepatitis B Surface antibody not detected. REACTIVE: IgM antibodies to Hepatitis B Surface antibody detected. Hep B core IgM NONREACT NONREACTIVE 3 12:00 PM RADIOLOGIST [facility] HISTORICAL RESULTS Comment: Siemens CentaurXP using ASHLEY (chemiluminescent immunoassay) technology. NONREACTIVE: IgM antibodies to Hepatitis B Core antigen not detected. EQUIVOCAL: IgM antibodies to Hepatitis B Core antigen may or may not be present. Obtain a new specimen and retest. REACTIVE: IgM antibodies to Hepatitis B Core antigen detected. Hep A IgM NONREACT NONREACTIVE 07/16/2012 12:00 PM RAD[facility]OLOGIST [facility] HISTORICAL RESULTS Comment: Siemens CentaurXP using ASHLEY (chemiluminescent immunoassay) technology. NONREACTIVE: IgM antibodies to Hepatitis A not detected. This does not exclude possibility of exposure to Hepatitis A or early acute infection. EQUIVOCAL:IgM antibodies to Hepatitis A may or may not be present. Suggest recollection and retest. REACTIVE: Antibodies to Hepatitis A detected. Hep C Ab NONREACT NONREACTIVE 07/16/2012 12:00 PM RADIOLOGIST [facility] HISTORICAL RESULTS Comment: Siemens CentaurXP using ASHLEY (chemiluminescent immunoassay) technology. NONREACTIVE: Antibodies to Hepatitis C not detected. This does not exclude early acute Hepatitis C infection, possibility of exposure to Hepatitis C, antibodies below detection limit, or to lack of antibody reactivity to the antigen used in this assay. EQUIVOCAL: Antibodies to Hepatitis C may or may not be present. Sample to be confirmed by real-time PCR method. REACTIVE: Antibodies to Hepatitis C detected. 07/16/2012 9:20 AM RADIOLOGIST 07/16/2012 10:29 AM RADIOLOGIST us Aaron BISHOP LAB MICROBIOLOGY - GENERAL ORDUrmila BENOIT Final Result [facility] HISTORICAL RESULTS from Last 3 Months or Most Recently Relevant to Health Maintenance Insurance [employer] MEDICARE PPO [employer] MEDICARE PPO Care Teams Electric Milkers Installer Relationship Specialty Start Date End Date Konstantin Ferro MD PCP - General Family Medicine 12/18/23
--- OUTSIDE RECORDS SUMMARY | 2025-01-19 10:48 | XMS_ITS | Encounter Summary ---
Author Organization [employer] Address [address] [place] [address] Care Team Providers Care Engineering Technician Parking Name Role Phone Lokesh Mcdowell MD Primary Care Provider Unavailab le Encounter Details Date Type Department Care Team (Late st Contact Info) Description 12/19/1999 Outpatient Historical [facility] Adam Kimble MD [address] [place] [id number] Social History Tobacco Use Types Packs/Day Years Used Date Smoking Tobacco: Never Assessed Sex and Gender Information Value Date Recorded Sex Assigned at Not on file Legal Sex Male 3:35 AM COUNTER FORMER Gender Identity Not on file Sexual Orientation Not on file documented as of this encounter Plan of Treatment Not on file documented as of this encounter Visit Diagnoses Not on filedocumented in this encounter Care Teams Engineering Technician Parking Relationship Specialty Start Date End Date Lokesh Mcdowell MD PCP - General 06/17/09 06/19/12 documented as of this encounter
--- OUTSIDE RECORDS SUMMARY | 2025-01-19 10:48 | XMS_ITS | Clinical Summary ---
Author Organization [facility] Address [address] [place] [address] Phone Care Team Providers Care Clothing Pattern Preparer Name Role Phone Unavailable Primary Care Provider Unavailabl e Allergies No known active allergies Medications BENEFIBER CLEAR 1 GRAM TAB 1 Three Times A Day 270.00 0 7 Active GLUCOSAMINE-CHONDR OITIN COMPLX Oral Cap 1 Every Day 30.00 0 8 Active ASPIRIN 81 mg Oral Tab Take 81 mg by mouth daily. Active ibuprofen (MOTRIN) 200 mg Oral Cap Take 1 Cap by mouth 1 time daily as needed. Active OMEGA-3 FATTY ACIDS (FISH OIL CONCENTRATE PO) Take 1 Tab by mouth daily. Active DOCUSATE CALCIUM (STOOL SOFTENER ORAL) Take by mouth. Activ e ZOCOR 10 mg Oral tabletIndications: Other and unspecified hyperlipidemia Take 1 Tab by mouth daily. 90 Tab 3 2 Active olmesartan-hydroch lorothiazide (BENICAR HCT) 40-25 mg Oral tabletIndications: Unspecified essential hypertension Take 1 Tab by mouth daily mattress weaver. 90 Tab 3 2 Active fluticasone (FLONASE) 50 mcg/spray Both Nostril SpSnIndications:Al lergic rhinitis Administer 2 Sprays in each nostril daily. 1 Bottle 3 2 Active Active Problems Problem Noted Date Diagnosed Date Other and unspecified hyperlipidemia 12/13/2006 Unspecified essential hypertension 12/13/2006 Resolved Problems Problem Noted Date Diagnosed Date Resolved Date Routine physical examination 06/04/2008 05/02/2011 Special screening for malign ant neoplasm of prostate 05/30/2007 05/02/2011 Cough 05/30/2007 06/04/2008 Immunizations Immunization Administration Dates Next Due (ADACEL/BOOSTRIX)(10 YR UP) TDAP VACCINE, 0.5ML, IM 06/07/2010 Family History Medical History Relation Name Comments Colon Cancer Brother Respiratory Disease Father Cancer Mother Cancer Son 1 Healthy Son 2 Relation Name Status Comments Brother Alive Father Mother Son 1 Alive Son 2 Alive Social History Tobacco Use Types Packs/Day Years Used Date Smoking Tobacco: Never Smokeless Tobacco: Never Alcohol Use Standard Drinks/Week Comments No 0 (1 standard drink = 0.6 oz pur e alcohol) Sex and Gender Information Value Date Recorded Sex Assigned at Not on file Legal Sex Male 3:35 AM COUNTER MAKER Gender Identity Not on file Sexual Orientation Not on file 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 Not on file Not on file Not on file Not on file Not on file Not on file Last Filed Vital Signs Vital Sign Reading Time Taken Comments Blood Pressure 132/88 06/08/2011 9:57 AM COUNTER MAKER Pulse 68 06/08/2011 9:57 AM COUNTER MAKER Temperature 37.1 C (98.7 F) 06/08/2011 9:57 AM COUNTER MAKER Respiratory Rate 16 06/08/2011 9:57 AM COUNTER MAKER Oxygen Saturation 98% 06/08/2011 9:57 AM COUNTER MAKER Inhaled Oxygen Concentration - - Weight 93.9 kg (207 lb) 06/08/2011 9:57 AM COUNTER MAKER Height 175.3 cm (5' 9) 06/08/2011 9:57 AM COUNTER MAKER Body Mass Index 30.57 06/08/2011 9:57 AM COUNTER MAKER Plan of Treatment Health Maintenance Due Date Last Done Comments FIT-DNA Q 3 years 1996 Flex Sig/CT Colonography Q 5 years 1996 PNEUMOCOCCAL VACCINE 50+ YEA RS (1 of 1 - PCV) 2001 ZOSTER VACCINE (1 of 2) 2001 FIT/FOBT Q 1 year 10/25/2006 10/25/2005, , 05/05/2003, Additional history exists DTAP/TDAP/TD VACCINES (1 - Tdap) 06/07/2010 01/11/20 11 COLORECTAL SCREENING 06/10/2017 06/10/2007 Colorectal Cancer Screening 06/10/2017 INFLUENZA VACCINE (#1) 2024 RSV VACCINE (60+ or ) (1 - 1-dose 75+ series) 2026 Insurance [facility] PPO [id number]
--- OUTSIDE RECORDS SUMMARY | 2025-01-19 10:48 | XMS_ITS | Encounter Summary ---
Author Organization [facility] Address [address] [place]: Epic Prelude ADT [place] [address] Care Team Providers Care Advertising Copy Writer Name Role Phone Lokesh Mcdowell MD Primary Care Provider Unavailab le Encounter Details Date Type Department Care Team (Late st Contact Info) Description 07/13/2006 Outpatient Historical Social History Tobacco Use Types Packs/Day Years Used Date Smoking Tobacco: Never Assessed Sex and Gender Information Value Date Recorded Sex Assigned at Not on file Legal Sex Male 3:35 AM RAYON WINDER Gender Identity Not on file Sexual Orientation Not on file documented as of this encounter Plan of Treatment Not on file documented as of this encounter Visit Diagnoses Not on filedocumented in this encounter Care Teams Advertising Copy Writer Relationship Specialty Start Date End Date Lokesh Mcdowell MD PCP - General 06/17/09 06/19/12 documented as of this encounter
--- OUTSIDE RECORDS SUMMARY | 2025-01-19 10:48 | XMS_ITS | Encounter Summary ---
Author Organization [employer] Address [address] [place] [address] Care Team Providers Care Supervisor Publications Name Role Phone Lokesh Mcdowell MD Primary Care Provider Unavailab le Encounter Details Date Type Department Care Team (Late st Contact Info) Description 07/13/2006 Outpatient Historical [facility], [address] Herrera Yu MD NO ADDRESS ON FILE Social History Tobacco Use Types Packs/Day Years Used Date Smoking Tobacco: Never Assessed Sex and Gender Information Value Date Recorded Sex Assigned at Not on file Legal Sex Male 3:35 AM BARREL CENTERER Gender Identity Not on file Sexual Orientation Not on file documented as of this encounter Plan of Treatment Not on file documented as of this encounter Procedures Procedure Name Priority Date/Time Associated Diagnosis Comments BASIC METABOLIC PANEL Routine 07/13/2006 10:53 AM BARREL CENTERER documented in this encounter Results * BASIC METABOLIC PANEL (07/13/2006 10:53 AM BARREL CENTERER) GLUCOSE 83 65 - 99 mg/dL INTERFACE SYSTEM CREATININE 0.86 0.67 - 1.17 mg/dL INTERFACE SYSTEM CALCIUM 9.1 8.4 - 10.2 mg/dL INTERFACE SYSTEM BUN 18 6 - 20 mg/dL INTERFACE SYSTEM SODIUM 140 135 - 145 mmol/L INTERFACE SYSTEM POTASSIUM 4.9 3.5 - 4.9 mmol/L INTERFACE SYSTEM Comment: Moderate hemolysis present. Can cause significant falsely elevated result. Clinical judgement necessary. Redraw if indicated. CHLORIDE 102 96 - 108 mmol/L INTERFACE SYSTEM CO2 30 22 - 30 mmol/L INTERFACE SYSTEM GFR, >60 >=60 mL/min/1.7 sq meter INTERFACE SYSTEM GFR >60 >=60 mL/min/1.7 sq meter INTERFACE SYSTEM Comment: Estimated GFR rate interpretative information for both Americans and non- Americans is available on the [facility] Intranet at: [email or web address] Select: Lab Policies and Procedures Select: Reference Ranges - GFR 07/13/2006 10:5 3 AM BARREL CENTERER us Herrera Yu MD CHEMISTRY ORDERABLES Edited INTERFACE SYSTEM Refer to clinic/hospital department documented in this encounter Visit Diagnoses Not on filedocumented in this encounter Care Teams Supervisor Publications Relationship Specialty Start Date End Date Lokesh Mcdowell MD PCP - General 06/17/09 06/19/12 documented as of this encounter
--- OUTSIDE RECORDS SUMMARY | 2025-01-19 10:48 | XMS_ITS | Encounter Summary ---
Author Organization [employer] Address [address] [place] [address] Care Team Providers Care Mushroom Growing Supervisor Name Role Phone Lokesh Mcdowell MD Primary Care Provider Unavailab le Encounter Details Date Type Department Care Team (Late st Contact Info) Description 06/13/2001 Outpatient Historical HIS [facility] Adam Kimble MD [address] [place] [id number] Social History Tobacco Use Types Packs/Day Years Used Date Smoking Tobacco: Never Assessed Sex and Gender Information Value Date Recorded Sex Assigned at Not on file Legal Sex Male 3:35 AM HOUSEKEEPING AND LAUNDRY TEAM LEADER Gender Identity Not on file Sexual Orientation Not on file documented as of this encounter Plan of Treatment Not on file documented as of this encounter Visit Diagnoses Not on filedocumented in this encounter Care Teams Mushroom Growing Supervisor Relationship Specialty Start Date End Date Lokesh Mcdowell MD PCP - General 06/17/09 06/19/12 documented as of this encounter
--- OUTSIDE RECORDS SUMMARY | 2025-01-19 10:48 | XMS_ITS | Encounter Summary ---
Author Organization [employer] Address 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
--- OUTSIDE RECORDS SUMMARY | 2025-01-19 10:48 | XMS_ITS | Encounter Summary ---
Author Organization [email or web address] Address 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
--- OUTSIDE RECORDS SUMMARY | 2025-01-19 10:48 | XMS_ITS | Encounter Summary ---
Author Organization [employer] Address [address] [place] [address] Care Team Providers Care Drive In Theater Attendant Name Role Phone Lokesh Mcdowell MD Primary Care Provider Unavailab le Encounter Details Date Type Department Care Team (Latest Contact Info) Description 08/28/2008 Outpatient Historical HIS [facility] Lokesh Montano MD [address] [address] Pain in Soft Tissues of Limb Social History Tobacco Use Types Packs/Day Years Used Date Smoking Tobacco: Never Alcohol Use Standard Drinks/Week Comments No 0 (1 standard drink = 0.6 oz pur e alcohol) Sex and Gender Information Value Date Recorded Sex Assigned at Not on file 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
--- OUTSIDE RECORDS SUMMARY | 2025-01-19 10:48 | XMS_ITS | Encounter Summary ---
Author Organization [employer] Address 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
--- OUTSIDE RECORDS SUMMARY | 2025-01-19 10:48 | XMS_ITS | Encounter Summary ---
Author Organization [employer] Address 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
--- OUTSIDE RECORDS SUMMARY | 2025-01-19 10:48 | XMS_ITS | Encounter Summary ---
Author Organization [employer] Address [address] [place] [address] Care Team Providers Care Bobbin Winder Tender Name Role Phone Lokesh Mcdowell MD Primary Care Provider Unavailab le Encounter Details Date Type Department Care Team (Latest Contact Info) Description 06/04/2008 Outpatient Historical HIS [facility] Lokesh Montano MD [address] [address] Other and Unspecified Hyperlipidemia Social History Tobacco Use Types Packs/Day Years Used Date Smoking Tobacco: Never Alcohol Use Standard Drinks/Week Comments No 0 (1 standard drink = 0.6 oz pur e alcohol) Sex and Gender Information Value Date Recorded Sex Assigned at Not on file 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
--- OUTSIDE RECORDS SUMMARY | 2025-01-19 10:48 | XMS_ITS | Encounter Summary ---
Author Organization [employer] Address 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
--- OUTSIDE RECORDS SUMMARY | 2025-01-19 10:48 | XMS_ITS | Encounter Summary ---
Author Organization [employer] Address 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
--- OUTSIDE RECORDS SUMMARY | 2025-01-19 10:48 | XMS_ITS | Encounter Summary ---
Author Organization [employer] Address 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 DOCTOR OF DENTAL SURGERY Gender Identity Not on file Sexual Orientation Not on file documented as of this encounter Plan of Treatment Not on file documented as of this encounter Procedures Procedure Name Priority Date/Time Associated Diagnosis Comments BASIC METABOLIC PANEL Routine 07/18/2006 9:20 AM DOCTOR OF DENTAL SURGERY documented in this encounter Results * BASIC METABOLIC PANEL (07/18/2006 9:20 AM DOCTOR OF DENTAL SURGERY) GLUCOSE 86 65 - 99 mg/dL INTERFACE SYSTEM CREATININE 0.91 0.67 - 1.17 mg/dL INTERFACE SYSTEM CALCIUM 9.2 8.4 - 10.2 mg/dL INTERFACE SYSTEM BUN 17 6 - 20 mg/dL INTERFACE SYSTEM SODIUM [...] available on the [facility] Intranet at: [email or web address] Select: Lab Policies and Procedures Select: Reference Ranges - GFR 07/18/2006 9:20 AM DOCTOR OF DENTAL SURGERY us Herrera Yu MD CHEMISTRY ORDERABLES Edited INTERFACE SYSTEM Refer to clinic/hospital department documented in this encounter Visit Diagnoses Diagnosis Hyperpotassemia- Primary documented in this encounter Care Teams Case Assembler Relationship Specialty Start Date End Date Lokesh Mcdowell MD PCP - General 06/17/09 06/19/12 documented as of this encounter
--- OUTSIDE RECORDS SUMMARY | 2025-01-19 10:48 | XMS_ITS | Encounter Summary ---
Author Organization [employer] Address 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
--- OUTSIDE RECORDS SUMMARY | 2025-01-19 10:48 | XMS_ITS | Encounter Summary ---
Author Organization [facility] Address [address] [place] [address] Care Team Providers Care Contract Preparer Name Role Phone Lokesh Mcdowell MD Primary Care Provider Unavailab le Encounter Details Date Type Department Care Team (Late st Contact Info) Description 09/11/2007 Orders Only [facility] Internal Medicine Medical [place] [facility] 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
--- OUTSIDE RECORDS SUMMARY | 2025-01-19 10:48 | XMS_ITS | Encounter Summary ---
Author Organization [employer] Address 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 Male 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 ON Gender Identity Not on file Sexual Orientation Not on file documented as of this encounter Plan of Treatment Not on file documented as of this encounter Procedures Procedure Name Priority Date/Time Associated Diagnosis Comments PATHOLOGY Routine 10/31/2007 5:00 PM CDT documented in this encounter Results * PATHOLOGY (10/31/2007 5:00 PM CDT) FINAL REPORT [id number] [place], [place] [address] Patient: KENDRICK VEGAS : 1950 Procedure Date: 10/31/2007 Accession Date: 11/01/2007 Case No: [id number] Ordering Dr: PATIENCE RIVER Case types AW, BW, FW, NW and SH are performed by [facility], [place], [place] SURGICAL PATHOLOGY & NON-GYNECOLOGIC CYTOPATHOLOGY REPORT DIAGNOSIS SKIN, LEFT CHEST UNDER BREAST, EXCISIONAL BIOPSY: - NEUROFIBROMA. Specimen Description: Left side of the chest under the breast. Operative Procedure: Excisional biopsy. Patient Information/Histo ry/Diagnosis: Not stated. Gross: Received in a single container labeled Kendrick Vegas and left breast skin tag is a dome-shaped ellipse of light gentile skin measuring 0.8 x 0.7 x 0.3 cm. The specimen is inked, bisected, and entirely submitted labeled A1. CJ/TMZ 11.01.2007 09:10 am Microscopic: The slides are labeled [id number] and Kendrick Vegas. Histologic sections of skin from the left chest under breast reveal a relatively circumscribed proliferation within the dermis of spindle cells embedded in a finely fibrillary stromal matrix. Scattered mast cells are also noted. 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 GL/TMZ 11.04.2007 12:43 pm Staging Form: No. ELECTRONIC SIGNATURE FOR JAMIL PERALTA M.D.- 11/04/07 01:23 pm INTERFACE SYSTEM 10/31/2007 5:00 PM CDT Patience River MD PATHOLOGY/CYTOLOGY ORDERABLES F inal Result INTERFACE SYSTEM Refer to clinic/hospital department documented in this encounter Visit Diagnoses Not on filedocumented in this encounter Care Teams Trade Facilitator Relationship Specialty Start Date End Date Patience Mcdowell MD PCP - General 06/17/09 06/19/12 documented as of this encounter
== END 2025-01-19 09:59 | disposition home or self-care (01) ==
PROVIDERS: PCP Family Medicine; Visit Provider Urology
DX: N20.0 Calculus of kidney (principal)
CPT/HCPCS: 74018